=== PATIENT | female | born 1950 | race Caucasian/White ===

== ENCOUNTER 2019-11-05 16:45 | Emergency (ER) | payer MEDICARE, MEDICAID ==
--- NOTE | 2019-11-05 17:20 | EDM.PDOC ---
ED HPI GENERAL MEDICAL PROBLEM - General Chief Complaint: Lower Extremity Injury/Pain Stated Complaint: BACK OF LEFT KNEE Time Seen by Provider: 11/05/19 16:48 Source of Information: Reports: Patient, Old Records - History of Present Illness INITIAL COMMENTS - FREE TEXT/NARRATIVE: 68-year-old female with multiple medical problems most relevantly atrial fibrillation for which she takes Eliquis she also takes a baby aspirin. She is presenting with improving but persistent left knee pain and an abnormal ultrasound report. Patient had a telehealth appointment near her residence. She complained of knee pain and knee swelling and ultrasound was ordered there was some confusion about the interpretation as it said both no DVT as well as blood clot and the patient was referred to the ER. 2 to 3 weeks ago the patient developed a relatively rapid and acute left knee pain and swelling that was atraumatic. This pain was moderate to severe at that time but is gradually improved. She is been able to walk some independently. She has been elevating it as well. Patient had an ultrasound today that ultrasound showed no DVT in that extremity but a relatively large cyst in the popliteal fossa was complex architecture suggested blood clot. Patient was recommended to proceed to the ER for further evaluation. left knee Pain Score (Numeric/FACES): 8 - Related Data Allergies Allergy/AdvReac Type Severity Reaction Status Date / Time codeine Allergy Nausea and Verified 11/05/19 17:05 Vomiting Home Meds: Home Meds Apixaban [Eliquis] 5 mg PO BID 11/05/19 [History] Aspirin 81 mg PO DAILY 11/05/19 [History] DULoxetine [Cymbalta] 20 mg PO BID 11/05/19 [History] Metoprolol Tartrate 0.5 tab PO DAILY 11/05/19 [History] Pantoprazole [ProTONIX] 40 mg PO DAILY 11/05/19 [History] Pramipexole [Mirapex] 0.25 mg PO DAILY 11/05/19 [History] Roflumilast [Daliresp] 500 mcg PO DAILY 11/05/19 [History] Rosuvastatin Calcium [Ezallor Sprinkle] 40 mg PO BEDTIME 11/05/19 [History] Sulfamethoxazole/Trimethoprim [Bactrim Ds Tablet] 1 each PO DAILY 11/05/19 [ History] lisinopriL [Lisinopril] 40 mg PO DAILY 11/05/19 [History] traZODone HCl [Trazodone HCl] 50 mg PO Q8HR PRN 11/05/19 [History] Review of Systems - Review of Systems Review Of Systems: Comprehensive ROS is negative, except as noted in HPI. ED EXAM, GENERAL - Physical Exam Exam: See Below Free Text/Narrative:: General Appearance: No acute distress, appears comfortable Skin: No rash HEENT: Normocephalic/atraumatic, sclera anicteric, mucous membranes moist Neck: Normal range of motion Back: Normal Musculoskeletal: 2+ DP pulse in the left leg there is a moderate left knee effusion that knee effusion is without tenderness or warmth or erythema there is a nontender ecchymosis along the left medial thigh that is without palpable swelling there is a tender palpable cyst in the popliteal fossa consistent with Castrejon's cyst. There is no calf pain or tenderness there is no other lower extremity erythema there is no skin change that would suggest cellulitis ligaments intact x4 on exam passive range of motion is nearly full in extension flexion somewhat limited to 90 degrees due to discomfort behind the knee. Neurologic: Awake, alert, no obvious deficits, moving all extremities Psychiatric: Appropriate, cooperative Course - Vital Signs Last Recorded V/S: Last Vital Signs Temp 97.4 F 11/05/19 17:06 Pulse 88 11/05/19 17:06 Resp 18 11/05/19 17:06 BP 108/60 11/05/19 17:06 Pulse Ox 93 L 11/05/19 17:06 Departure - Departure Time of Disposition: 17:17 Disposition: Home, Self-Care 01 Condition: Good Clinical Impression: Knee effusion, left, Castrejon's cyst, unruptured, Ecchymosis - Discharge Information *PRESCRIPTION DRUG MONITORING PROGRAM REVIEWED*: Not Applicable *COPY OF PRESCRIPTION DRUG MONITORING REPORT IN PATIENT TONY: Not Applicable Instructions: Knee Effusion, [id number], Castrejon Cyst Referrals: PCP,None [Primary Care Provider] - Forms: ED Department Discharge Additional Instructions: We discussed that I think the swelling in your knee was due to bleeding in your knee that happened back when the pain started and was at its worst a few weeks ago. Over time your body is breaking down that blood some of it is going back into your bloodstream and being redistributed but some of it also arises to the surface which is why you can see the purpleish discoloration on your thigh. The painful swelling behind your knee is most consistent with a Castrejon's cyst. Because you had bleeding in your knee joint and a Castrejon's cyst is connected to your knee joint that Castrejon's cyst is now also full of blood. You do not have a DVT in that leg which is a blood clot in the deep veins of the leg. You do not have any signs of an infection in your knee. And this process should improve on its own over the next few weeks. I encourage you to use a cane or walker to help you get around so that you are not stuck in bed. And since things do seem to be improving I would not change your medications or stop your Eliquis at this time. I encourage you to follow-up with your primary care doctor you can also follow-up with the orthopedic surgeon to help ensure that this process resolves itself as we expect. The following information is given to patients seen in the emergency department who are being discharged to home. This information is to outline your options for follow-up care. We provide all patients seen in our emergency department with a follow-up referral. The need for follow-up, as well as the timing and circumstances, are variable depending upon the specifics of your emergency department visit. If you don't have a primary care physician on staff, we will provide you with a referral. We always advise you to contact your personal physician following an emergency department visit to inform them of the circumstance of the visit and for follow-up with them and/or the need for any referrals to a consulting specialist. The emergency department will also refer you to a specialist when appropriate. This referral assures that you have the opportunity for follow-up care with a specialist. All of these measure are taken in an effort to provide you with optimal care, which includes your follow-up. Under all circumstances we always encourage you to contact your private physician who remains a resource for coordinating your care. When calling for follow-up care, please make the office aware that this follow-up is from your recent emergency room visit. If for any reason you are refused follow-up, please contact the [facility] Emergency Department at and asked to speak to the emergency department charge nurse. Sepsis Event Note - Evaluation Sepsis Screening Result: No Definite Risk - Focused Exam Vital Signs: Vital Signs Temp Pulse Resp BP Pulse Ox 11/05/19 17:06 97.4 F 88 18 108/60 93 L Date Exam was Performed: 11/05/19 Time Exam was Performed: 17:22 - Assessment/Plan Assessment:: 68-year-old female presenting with improving atraumatic left knee pain and swelling with clinical findings most consistent with resolving hemarthrosis likely secondary to the Eliquis. This would explain the ecchymosis along the medial thigh would also explain the blood noted within what seems to be a Castrejon' s cyst behind the knee. No skin changes that would suggest cellulitis no concern for septic arthritis patient is able to tolerate range of motion and ambulation relatively well range of motion is relatively full there is no warmth or erythema associated with this. No concern for acute arterial compromise the limb feels warm and well perfused. No history of trauma no focal bony tenderness on exam. I think the atraumatic hemarthrosis related to the Eliquis led to the complex structure and blood clot within the Castrejon's cyst. I do not see any evidence of fracture I do not see any indication of DVT I do not see any indication of cellulitis or septic arthritis. Other etiologies considered as well. Patient recommended to procure cane to help with ambulation she was provided follow-up information for orthopedic surgery both locally and in [facility] where she lives. Given that the symptoms are improving I would not alter her medications at this time.
== END 2019-11-05 17:33 | disposition home or self-care (01) ==
LOC: MW.ED 16:45
DX: M71.22 Synovial cyst of popliteal space [Baker], left knee (principal); Z88.5 Allergy status to narcotic agent; Z79.82 Long term (current) use of aspirin; Z79.01 Long term (current) use of anticoagulants; Z79.899 Other long term (current) drug therapy
CPT/HCPCS: 99283

== ENCOUNTER 2019-11-09 16:01 | Emergency (ER) | payer MEDICARE, MEDICAID ==
--- NOTE | 2019-11-09 16:46 | EDM.PDOC ---
ED HPI GENERAL MEDICAL PROBLEM - General Chief Complaint: Skin Complaint Stated Complaint: SICK Time Seen by Provider: 11/09/19 16:21 - History of Present Illness INITIAL COMMENTS - FREE TEXT/NARRATIVE: History of present illness: [Presents with concerns about a painful spot on her neck that is been present for 2 days she states that it is tender to touch she cannot see what is there she denies any injuries there is been no fever or chills recently she had a Castrejon's cyst so she is worried this might be related to her Castrejon's cyst.] Review of systems: As per history of present illness and below otherwise all systems reviewed and negative. Past medical history: As per history of present illness and as reviewed below otherwise noncontributory. Surgical history: As per history of present illness and as reviewed below otherwise noncontributory. Social history: No reported history of drug or alcohol abuse. Family history: As per history of present illness and as reviewed below otherwise noncontributory. Physical exam: HEENT: Atraumatic, normocephalic, pupils reactive, negative for conjunctival pallor or scleral icterus, mucous membranes moist, throat clear, neck supple, nontender, trachea midline. Lungs: Clear to auscultation, breath sounds equal bilaterally, chest nontender. Heart: S1S2, regular, negative for clicks, rubs, or JVD. Abdomen: Soft, nondistended, nontender. Negative for masses or hepatosplenomegaly. Negative for costovertebral tenderness. Pelvis: Stable nontender. Genitourinary: Deferred. Rectal: Deferred. Extremities: Atraumatic, negative for cords or calf pain. Neurovascular unremarkable. Neuro: Awake, alert, oriented. Cranial nerves II through XII unremarkable. Cerebellum unremarkable. Motor and sensory unremarkable throughout. Exam nonfocal. neck: There is no lesion on the skin there is a palpable knot consistent with muscle spasm. No evidence of rash no evidence of subcutaneous structure or abscess. Diagnostics: [] Therapeutics: [] Impression: Cervical strain [] Plan: In the middle of the evaluation the patient stood up and left without any explanation [] Definitive disposition and diagnosis as appropriate pending reevaluation and review of above. back of neck Pain Score (Numeric/FACES): 6 - Related Data Allergies Allergy/AdvReac Type Severity Reaction Status Date / Time codeine Allergy Nausea and Verified 11/09/19 16:07 Vomiting Home Meds: Home Meds Apixaban [Eliquis] 5 mg PO BID 11/05/19 [History] Aspirin 81 mg PO DAILY 11/05/19 [History] DULoxetine [Cymbalta] 20 mg PO BID 11/05/19 [History] Metoprolol Tartrate 0.5 tab PO DAILY 11/05/19 [History] Pantoprazole [ProTONIX] 40 mg PO DAILY 11/05/19 [History] Pramipexole [Mirapex] 0.25 mg PO DAILY 11/05/19 [History] Roflumilast [Daliresp] 500 mcg PO DAILY 11/05/19 [History] Rosuvastatin Calcium [Ezallor Sprinkle] 40 mg PO BEDTIME 11/05/19 [History] Sulfamethoxazole/Trimethoprim [Bactrim Ds Tablet] 1 each PO DAILY 11/05/19 [ History] lisinopriL [Lisinopril] 40 mg PO DAILY 11/05/19 [History] traZODone HCl [Trazodone HCl] 50 mg PO Q8HR PRN 11/05/19 [History] Past Medical History HEENT History: Reports: None Cardiovascular History: Reports: Afib, Hypertension Respiratory History: Reports: COPD Gastrointestinal History: Reports: None Genitourinary History: Reports: None VARIETY SAW OPERATOR History: Reports: None Musculoskeletal History: Reports: None Other Neuro History: subderal hematoma with surgery Psychiatric History: Reports: Anxiety Endocrine/Metabolic History: Reports: None Insulin Pump Model and Diagnostic Sales Specialist: None Hematologic History: Reports: None Immunologic History: Reports: None Oncologic (Cancer) History: Reports: None Dermatologic History: Reports: None - Infectious Disease History Infectious Disease History: Reports: None - Past Surgical History Head Surgeries/Procedures: Reports: None Musculoskeletal Surgical History: Reports: Hip Replacement, Knee Replacement Social & Family History - Family History Family Medical History: Noncontributory - Tobacco Use Smoking Status *Q: Current Every Day Smoker Years of Tobacco use: 45 Packs/Tins Daily: 0.5 - Caffeine Use Caffeine Use: Reports: None - Recreational Drug Use Recreational Drug Use: No ED ROS GENERAL - Review of Systems Review Of Systems: See Below ED EXAM, SKIN/RASH Exam: See Below Course - Vital Signs Text/Narrative:: The patient for some reason became frustrated and left prior to completion of the physical exam. Last Recorded V/S: Last Vital Signs Temp 36.4 C 11/09/19 16:09 Pulse 79 11/09/19 16:09 Resp 18 11/09/19 16:09 BP 143/86 H 11/09/19 16:09 Pulse Ox 95 11/09/19 16:09 Departure - Departure Time of Disposition: 16:40 Disposition: Home, Self-Care 01 Condition: Good Clinical Impression: Neck pain - Discharge Information *PRESCRIPTION DRUG MONITORING PROGRAM REVIEWED*: Not Applicable *COPY OF PRESCRIPTION DRUG MONITORING REPORT IN PATIENT TONY: Not Applicable Referrals: PCP,Not In Area [Primary Care Provider] - Sepsis Event Note - Evaluation Sepsis Screening Result: No Definite Risk - Focused Exam Vital Signs: Vital Signs Temp Pulse Resp BP Pulse Ox 11/09/19 16:09 36.4 C 79 18 143/86 H 95 Date Exam was Performed: 11/09/19 Time Exam was Performed: 16:36
== END 2019-11-09 16:35 | disposition home or self-care (01) ==
LOC: MW.ED 16:01
DX: M54.2 Cervicalgia (principal); F17.210 Nicotine dependence, cigarettes, uncomplicated; I48.91 Unspecified atrial fibrillation; I10 Essential (primary) hypertension; J44.9 Chronic obstructive pulmonary disease, unspecified; F41.9 Anxiety disorder, unspecified; Z88.5 Allergy status to narcotic agent; Z79.82 Long term (current) use of aspirin; Z79.01 Long term (current) use of anticoagulants; Z79.899 Other long term (current) drug therapy
CPT/HCPCS: 99282; 99283

== ENCOUNTER 2020-03-15 11:53 | Emergency (ER) | payer MEDICARE, MEDICAID, OTHER ==
[2020-03-15] MEDS ORDERED: Sodium Chloride 0.9% 10 ML Syringe FLUSH PRN (11:54)
[2020-03-15] MEDS ORDERED: Sodium Chloride 0.9% 2.5 ML Syringe FLUSH PRN (11:54)
--- NOTE | 2020-03-15 12:34 | CR ---
Chest: Portable view of the chest was obtained. Comparison: No previous chest imaging is available. Heart size is felt to be slightly enlarged. Upper mediastinum is normal. Lungs show no definite acute parenchymal change. Questionable nodule is seen overlying the posterior eighth rib. Slight degenerative change within both acromioclavicular joints is noted. Impression: 1. Questionable small nodule within the right mid to lower lung. Consider noncontrast chest CT to hopefully exclude this possibility. 2. Heart size is felt to be slightly enlarged. 3. Nothing acute is otherwise seen. Diagnostic code #9 This report was dictated in MDT
[2020-03-15 12:51] LABS: CARBON DIOXIDE,CO2 24.5 mmol/L (21.0-32.0); POTASSIUM,K 4.1 mmol/L (3.5-5.1)
[2020-03-15] MEDS ORDERED: Sodium Chloride 0.9% 1,000 ML IV ONE (13:08)
[2020-03-15] MEDS ORDERED: Iopamidol 755 Mg/ML 100 ML Bottle IVPUSH STA (14:15)
--- NOTE | 2020-03-15 14:23 | CT ---
CT chest Technique: Multiple axial sections through the chest were obtained. Intravenous contrast was utilized. Study has been performed as a pulmonary angiogram protocol. Comparison: No prior chest CT is available, a chest x-ray performed earlier on the same day (12:17 PM). Findings: Pulmonary arteries are well opacified. No filling defects are seen to indicate pulmonary embolism. Heart is enlarged. No discrete abnormality seen within the visualized upper abdominal structures other than a small right renal cyst. Aorta shows no aneurysm. Small mediastinal lymph nodes are seen for are felt to be within normal limits. Diffuse emphysematous changes are seen. Increased density is noted within the left lung base either due to atelectasis or pneumonia. There is collapse of a portion of the right middle lobe along the major fissure. Uncertain if this is chronic or acute. Small lesion is noted within the upper right lung measuring 1.9 cm which has slightly spiculated margins. Lungs otherwise are clear. Bone window settings were reviewed. No acute osseous finding is seen. Mild scattered endplate spurring is noted within the spine. Impression: 1. No findings of pulmonary embolism. 2. Atelectasis involving a portion of the right middle lobe. Uncertain if this is chronic or acute. 3. Parenchymal density within left lung base either due to atelectasis or pneumonia. 4. Spiculated lesion within the upper right lung measuring 1.9 cm. Difficult at this time to exclude neoplasm. This is believed because the density on chest x-ray. 5. Diffuse emphysematous change. Diagnostic code #9 This report was dictated in MDT
--- NOTE | 2020-03-15 14:39 | EDM.PDOC ---
ED HPI GENERAL MEDICAL PROBLEM - General Chief Complaint: Respiratory Problem Stated Complaint: SOB Time Seen by Provider: 03/15/20 11:54 Source of Information: Reports: Patient History Limitations: Reports: No Limitations - History of Present Illness INITIAL COMMENTS - FREE TEXT/NARRATIVE: HISTORY AND PHYSICAL: History of present illness: Patient is a 69-year-old female who presents to the ED today with concern of worsening short of breath over the last 1 to 2 days. Patient states 1 month ago she was admitted at [facility] in [place] and was discharged 1 month ago due to pneum onia. Patient states at that time they had a hard time finding antibiotics that would take care of the pneumonia according to patient. Patient states since discharge from the hospital, she has been on 3 L nasal cannula at home to maintain her oxygen. Patient states that she came into the ED today because her home health was concerned because her oxygen was in the 80s on 3 L so they increased her to 4 L in order to get her up into the 90s. Patient states over the past several days she has felt more short of breath and coughing but this is also typical as she has COPD. Patient states that she has been on steroids until this weekend and was completely weaned off of them over the weekend. Patient states she has not been on any antibiotics for 1 month but does have symptoms as if she does have pneumonia like she did prior. Patient states she also has a history of CAD, subdural hematoma due to head injury. Denies any other symptoms or concerns. Patient denies fever, chills, chest pain. Denies headache, neck stiff ness, change in vision, syncope, or near syncope. Denies nausea, vomiting, abdominal pain, diarrhea, constipation, or dysuria. Has not noted any blood in urine or stool. Patient has been eating and drinking appropriately. Review of systems: As per history of present illness and below otherwise all systems reviewed and negative. Past medical history: As per history of present illness and as reviewed below otherwise noncontributory. Surgical history: As per history of present illness and as reviewed below otherwise noncontributory. Social history: See social history for further information Family history: As per history of present illness and as reviewed below otherwise noncontributory. Physical exam: General: Patient is alert, oriented, and in no acute distress. Patient laying comfortably on exam table. HEENT: Atraumatic, normocephalic, pupils equal and reactive bilaterally, negative for conjunctival pallor or scleral icterus, mucous membranes moist, TMs normal bilaterally, throat clear, neck supple, nontender, trachea midline. No drooling or trismus noted. No meningeal signs. No hot potato voice noted. Lungs: Patient speaking clearly without breathlessness, no wheezing or stridor, no accessory muscle use or respiratory distress. Auscultation deferred due to current COV-ID 19 outbreak. Heart: Auscultation deferred due to current COV-ID 19 outbreak. Abdomen: Soft, nondistended, nontender. Negative for masses or hepatosplenomegaly. Negative for costovertebral tenderness. Pelvis: Stable nontender. Genitourinary: Deferred. Rectal: Deferred. Skin: Intact, warm, dry. No lesions or rashes noted. Extremities: Atraumatic, negative for cords or calf pain. Neurovascular unremarkable. Neuro: Awake, alert, oriented. Cranial nerves II through XII unremarkable. Cerebellum unremarkable. Motor and sensory unremarkable throughout. Exam nonfocal. Notes: Dr. Quevedo verbally involved in patient care. Patient is 99% oxygen on 3L NC throughout entire stay here in the ED. Per patient, this is her baseline and not changed from home. All findings of Ang CT discussed with patient and need to have this followed up with her primary care provider. Questionable pneumonia vs atelectasis on CT, however, patient does have a UTI at this time so will give antibiotics for UTI and possible pneumonia. Admission was offered and encouraged but she declines requesting discharge from ED to home. All risks vs benefits discussed with patient. Will give initial IV dose of antibiotics in the ED today pending [facility] records to better guide antibiotic coverage from prior pneumonia as patient states they had difficulties finding an antibiotic due to resistance. While waiting for records from [facility], patient adamantly requesting leave from ED without having records for guidance of antibiotics or giving a sputum culture. Will give empiric antibiotics at this time as patient is not willing to wait for better guidance for coverage and send patient home with incentive spirometry. Discussed importance for reevaluation of symptoms tomorrow or Friday in the ER or by her primary care provider. She is willing to sign AMA form. Diagnostics: CBC, CMP, UA w culture, EKG, CXR, Trop, Ang CT, lactate, blood culture x 2, sputum culture Therapeutics: NS, Incentive Spirometer-sent home with Prescription: Augmentin, Azithromycin Impression: Dyspnea, r/o early pneumonia Urinary tract infection Left against medical advice Plan: 1. Take medication as prescribed. Use incentive spirometry as shown and as discussed. Follow up with your primary care provider as discussed. Return to the ED as needed and as discussed. Definitive disposition and diagnosis as appropriate pending reevaluation and review of above. - Related Data Allergies Allergy/AdvReac Type Severity Reaction Status Date / Time codeine Allergy Nausea and Verified 03/15/20 12:00 Vomiting Home Meds: Home Meds Apixaban [Eliquis] 5 mg PO BID 11/05/19 [History] Aspirin 81 mg PO DAILY 11/05/19 [History] DULoxetine [Cymbalta] 30 mg PO BID 11/05/19 [History] Pantoprazole [ProTONIX] 40 mg PO DAILY 11/05/19 [History] Pramipexole [Mirapex] 0.25 mg PO BEDTIME 11/05/19 [History] Roflumilast [Daliresp] 500 mcg PO DAILY 11/05/19 [History] Rosuvastatin Calcium [Ezallor Sprinkle] 40 mg PO BEDTIME 11/05/19 [History] lisinopriL [Lisinopril] 5 mg PO DAILY 11/05/19 [History] traZODone HCl [Trazodone HCl] 50 mg PO Q8HR PRN 11/05/19 [History] ALPRAZolam [Xanax] 0.5 mg PO TID PRN 03/15/20 [History] Albuterol Sulfate [Albuterol Sulfate Hfa] 1 puff INH Q6H PRN 03/15/20 [History] Albuterol/Ipratropium [DuoNeb 3.0-0.5 MG/3 ML] 3 ml INH Q6H PRN 03/15/20 [History] Amoxicillin/Clavulanate K [Augmentin 500-125 MG] 1 tab PO Q8H 7 Days #21 tab 03/15/20 [Rx] Docusate Sodium 100 mg PO DAILY PRN 03/15/20 [History] Fluticasone/Umeclidin/Vilanter [Trelegy Ellipta 100-62.5-25 MCG] 1 puff INH DAILY 03/15/20 [History] Hydrocodone/Acetaminophen [Hydrocodone-Acetamin 5-325 mg] 1 tab PO Q6H PRN 03/15/20 [History] Nitroglycerin 0.4 mg SL Q5M PRN 03/15/20 [History] Sucralfate 1 gm PO QID 03/15/20 [History] dilTIAZem HCL [Cardizem Cd] 360 mg PO DAILY 03/15/20 [History] Past Medical History HEENT History: Reports: None Cardiovascular History: Reports: Afib, Hypertension Respiratory History: Reports: COPD Gastrointestinal History: Reports: None Genitourinary History: Reports: None ACCOUNTS RECEIVABLE PROCESSOR History: Reports: None Musculoskeletal History: Reports: None Other Neuro History: subderal hematoma with surgery Psychiatric History: Reports: Anxiety Endocrine/Metabolic History: Reports: None Insulin Pump Model and Gizzard Skin Remover: None Hematologic History: Reports: None Immunologic History: Reports: None Oncologic (Cancer) History: Reports: None Dermatologic History: Reports: None - Infectious Disease History Infectious Disease History: Reports: None - Past Surgical History Head Surgeries/Procedures: Reports: None Musculoskeletal Surgical History: Reports: Hip Replacement, Knee Replacement Social & Family History - Family History Family Medical History: Noncontributory - Tobacco Use Smoking Status *Q: Unknown Ever Smoked - Caffeine Use Caffeine Use: Reports: None ED ROS GENERAL - Review of Systems Review Of Systems: Comprehensive ROS is negative, except as noted in HPI. ED EXAM, GENERAL - Physical Exam Exam: See Below (see dictation) Course - Vital Signs Last Recorded V/S: Last Vital Signs Temp 97.0 F 03/15/20 12:00 Pulse 80 03/15/20 15:40 Resp 20 03/15/20 15:40 BP 129/75 03/15/20 15:40 Pulse Ox 96 03/15/20 15:40 - Orders/Labs/Meds Orders: Active Orders 24 hr Category Date Time Status Cardiac Monitoring [RC] . DIRECTED Care 03/15/20 11:54 Active CULTURE BLOOD [BC] Stat Lab 03/15/20 14:04 Received CULTURE BLOOD [BC] Stat Lab 03/15/20 14:17 Received CULTURE SPUTUM + SMEAR [RM] Stat Lab 03/15/20 14:40 Ordered CULTURE URINE [RM] Stat Lab 03/15/20 14:00 Received Sodium Chloride 0.9% [Saline Flush] Med 03/15/20 11:54 Active 10 ml FLUSH ASDIRECTED PRN Sodium Chloride 0.9% [Saline Flush] Med 03/15/20 11:54 Active 2.5 ml FLUSH ASDIRECTED PRN Blood Culture x2 Reflex Set [OM.PC] Stat Ot 03/15/20 13:32 Ordered DME for Discharge [COMM] Stat Ot 03/15/20 15:01 Ordered Saline Lock Insert [OM.PC] Stat Ot 03/15/20 11:54 Ordered Medication Orders Sodium Chloride (Saline Flush) 10 ml FLUSH ASDIRECTED PRN PRN Reason: Keep Vein Open Last Admin: 03/15/20 13:16 Dose: 10 ml Documented by: [id number] Sodium Chloride (Saline Flush) 2.5 ml FLUSH ASDIRECTED PRN PRN Reason: Keep Vein Open Last Admin: 03/15/20 13:15 Dose: 2.5 ml Documented by: [id number] Labs: Laboratory Tests 03/15/20 03/15/20 03/15/20 Range/Units 12:15 12:15 12:15 WBC 12.06 H (4.0-11.0) K/uL RBC 3.86 L (4.30-5.90) M/uL Hgb 11.1 L (12.0-16.0) g/dL Hct 34.5 L (36.0-46.0) % MCV 89.4 (80.0-98.0) fL MCH 28.8 (27.0-32.0) pg MCHC 32.2 (31.0-37.0) g/dL RDW Std Deviation 49.8 (28.0-62.0) fl RDW Coeff of Trisha 15 (11.0-15.0) % Plt Count 160 (150-400) K/uL MPV 9.50 (7.40-12.00) fL Add Manual Diff YES Neutrophils % (Manual) 81 H (48.0-80.0) % Band Neutrophils % 3 % Lymphocytes % (Manual) 12 L (16.0-40.0) % Monocytes % (Manual) 3 (0.0-15.0) % Metamyelocytes % 1 % Nucleated RBC % 0.3 /100WBC Absolute Seg Neuts 9.8 H (1.4-5.7) Band Neutrophils # 0.4 Lymphocytes # (Manual) 1.4 (0.6-2.4) Monocytes # (Manual) 0.4 (0.0-0.8) Absolute Metamyelocyte 0.1 Nucleated RBCs # 0 K/uL Lactate 1.2 (0.20-2.00) mmol/L Sodium 131 L (136-145) mmol/L Potassium 4.1 (3.5-5.1) mmol/L Chloride 97 L (98-107) mmol/L Carbon Dioxide 24.5 (21.0-32.0) mmol/L BUN 15 (7.0-18.0) mg/dL Creatinine 1.1 H (0.6-1.0) mg/dL Est Cr Clr Drug Dosing 42.27 mL/min Estimated GFR (MDRD) 49.4 ml/min Glucose 103 (74-106) mg/dL Calcium 8.4 L (8.5-10.1) mg/dL Total Bilirubin 0.2 (0.2-1.0) mg/dL AST 35 (15-37) IU/L ALT 74 H (14-63) IU/L Alkaline Phosphatase 63 (46-116) U/L Troponin I 0.050 (0.000-0.056) ng/mL Total Protein 5.8 L (6.4-8.2) g/dL Albumin 2.5 L (3.4-5.0) g/dL Globulin 3.3 (2.6-4.0) g/dL Albumin/Globulin Ratio 0.8 L (0.9-1.6) Urine Color Urine Appearance Urine pH (5.0-8.0) Ur Specific [place] (1.001-1.035) Urine Protein (NEGATIVE) mg/dL Urine Glucose (UA) (NEGATIVE) mg/dL Urine Ketones (NEGATIVE) mg/dL Urine Occult Blood (NEGATIVE) Urine Nitrite (NEGATIVE) Urine Bilirubin (NEGATIVE) Urine Urobilinogen (<2.0) EU/dL Ur Leukocyte Esterase (NEGATIVE) Urine RBC (0-2/HPF) Urine WBC (0-5/HPF) Ur Epithelial Cells (NONE-FEW) Urine Bacteria (NEGATIVE) COVID-19 (RAYSHAWN) (NEGATIVE) 03/15/20 03/15/20 Range/Units 12:30 14:00 WBC (4.0-11.0) K/uL RBC (4.30-5.90) M/uL Hgb (12.0-16.0) g/dL Hct (36.0-46.0) % MCV (80.0-98.0) fL MCH (27.0-32.0) pg MCHC (31.0-37.0) g/dL RDW Std Deviation (28.0-62.0) fl RDW Coeff of Trisha (11.0-15.0) % Plt Count (150-400) K/uL MPV (7.40-12.00) fL Add Manual Diff Neutrophils % (Manual) (48.0-80.0) % Band Neutrophils % % Lymphocytes % (Manual) (16.0-40.0) % Monocytes % (Manual) (0.0-15.0) % Metamyelocytes % % Nucleated RBC % /100WBC Absolute Seg Neuts (1.4-5.7) Band Neutrophils # Lymphocytes # (Manual) (0.6-2.4) Monocytes # (Manual) (0.0-0.8) Absolute Metamyelocyte Nucleated RBCs # K/uL Lactate (0.20-2.00) mmol/L Sodium (136-145) mmol/L Potassium (3.5-5.1) mmol/L Chloride (98-107) mmol/L Carbon Dioxide (21.0-32.0) mmol/L BUN (7.0-18.0) mg/dL Creatinine (0.6-1.0) mg/dL Est Cr Clr Drug Dosing mL/min Estimated GFR (MDRD) ml/min Glucose (74-106) mg/dL Calcium (8.5-10.1) mg/dL Total Bilirubin (0.2-1.0) mg/dL AST (15-37) IU/L ALT (14-63) IU/L Alkaline Phosphatase (46-116) U/L Troponin I (0.000-0.056) ng/mL Total Protein (6.4-8.2) g/dL Albumin (3.4-5.0) g/dL Globulin (2.6-4.0) g/dL Albumin/Globulin Ratio (0.9-1.6) Urine Color YELLOW Urine Appearance HAZY Urine pH 7.5 (5.0-8.0) Ur Specific [place] 1.010 (1.001-1.035) Urine Protein NEGATIVE (NEGATIVE) mg/dL Urine Glucose (UA) NEGATIVE (NEGATIVE) mg/dL Urine Ketones NEGATIVE (NEGATIVE) mg/dL Urine Occult Blood MODERATE H (NEGATIVE) Urine Nitrite NEGATIVE (NEGATIVE) Urine Bilirubin NEGATIVE (NEGATIVE) Urine Urobilinogen 0.2 (<2.0) EU/dL Ur Leukocyte Esterase SMALL H (NEGATIVE) Urine RBC 10-15 (0-2/HPF) Urine WBC 5-10 (0-5/HPF) Ur Epithelial Cells RARE (NONE-FEW) Urine Bacteria 2+ H (NEGATIVE) COVID-19 (RAYSHAWN) NEGATIVE (NEGATIVE) Meds: Medications Generic Name Dose Route Start Last Admin Trade Name Freq PRN Reason Stop Dose Admin Sodium Chloride 10 ml 03/15/20 11:54 03/15/20 13:16 Saline Flush FLUSH 10 ml ASDIRECTED PRN Administration Keep Vein Open Sodium Chloride 2.5 ml 03/15/20 11:54 03/15/20 13:15 Saline Flush FLUSH 2.5 ml ASDIRECTED PRN Administration Keep Vein Open Discontinued Medications Generic Name Dose Route Start Last Admin Trade Name Freq PRN Reason Stop Dose Admin Sodium Chloride 1,000 mls @ 999 mls/hr 03/15/20 13:08 03/15/20 13:15 Normal Saline IV 03/15/20 14:08 999 mls/hr STAT ONE Administration Iopamidol 50 ml 03/15/20 14:15 03/15/20 14:16 [id number] (76%) IVPUSH 03/15/20 14:16 50 ml ONETIME STA Administration Departure - Departure Time of Disposition: 15:26 Disposition: Against Medical Advice 07 Clinical Impression: Left against medical advice Urinary tract infection Qualifiers: Urinary tract infection type: acute cystitis Hematuria presence: with hematuria Qualified Code(s): N30.01 - Acute cystitis with hematuria Dyspnea Qualifiers: Dyspnea type: unspecified Qualified Code(s): R06.00 - Dyspnea, unspecified - Discharge Information Prescriptions: Amoxicillin/Clavulanate K [Augmentin 500-125 MG] 1 tab PO Q8H 7 Days #21 tab Instructions: Urinary Tract Infection, Adult Referrals: PCP,None [Primary Care Provider] - Forms: ED Department Discharge Additional Instructions: The following information is given to patients seen in the emergency department who are being discharged to home. This information is to outline your options for follow-up care. We provide all patients seen in our emergency department with a follow-up referral. The need for follow-up, as well as the timing and circumstances, are variable depending upon the specifics of your emergency department visit. If you don't have a primary care physician on staff, we will provide you with a referral. We always advise you to contact your personal physician following an emergency department visit to inform them of the circumstance of the visit and for follow-up with them and/or the need for any referrals to a consulting specialist. The emergency department will also refer you to a specialist when appropriate. This referral assures that you have the opportunity for follow-up care with a specialist. All of these measure are taken in an effort to provide you with opti mal care, which includes your follow-up. Under all circumstances we always encourage you to contact your private physician who remains a resource for coordinating your care. When calling for follow-up care, please make the office aware that this follow-up is from your recent emergency room visit. If for any reason you are refused follow-up, please contact the [facility] Emergency Department at and asked to speak to the emergency department charge nurse. [facility] [address] [place] [id number] [place] [address] 1. Take medication as prescribed. Use incentive spirometry as shown and as discussed. Follow up with your primary care provider as discussed. Return to the ED as needed and as discussed. Sepsis Event Note (ED) - Evaluation Sepsis Screening Result: No Definite Risk - Focused Exam Vital Signs: Vital Signs Temp Pulse Resp BP Pulse Ox 03/15/20 15:40 80 20 129/75 96 03/15/20 14:40 84 20 145/82 H 96 03/15/20 13:22 76 20 96 03/15/20 12:31 76 18 118/63 96 03/15/20 12:00 97.0 F 77 20 134/77 98 - My Orders Last 24 Hours: My Active Orders 03/15/20 11:54 Cardiac Monitoring [RC] . DIRECTED Sodium Chloride 0.9% [Saline Flush] 10 ml FLUSH ASDIRECTED PRN Sodium Chloride 0.9% [Saline Flush] 2.5 ml FLUSH ASDIRECTED PRN Saline Lock Insert [OM.PC] Stat 03/15/20 13:32 Blood Culture x2 Reflex Set [OM.PC] Stat 03/15/20 14:00 CULTURE URINE [RM] Stat 03/15/20 14:04 CULTURE BLOOD [BC] Stat 03/15/20 14:17 CULTURE BLOOD [BC] Stat 03/15/20 14:40 CULTURE SPUTUM + SMEAR [RM] Stat 03/15/20 15:01 DME for Discharge [COMM] Stat - Assessment/Plan Last 24 Hours: My Active Orders 03/15/20 11:54 Cardiac Monitoring [RC] . DIRECTED Sodium Chloride 0.9% [Saline Flush] 10 ml FLUSH ASDIRECTED PRN Sodium Chloride 0.9% [Saline Flush] 2.5 ml FLUSH ASDIRECTED PRN Saline Lock Insert [OM.PC] Stat 03/15/20 13:32 Blood Culture x2 Reflex Set [OM.PC] Stat 03/15/20 14:00 CULTURE URINE [RM] Stat 03/15/20 14:04 CULTURE BLOOD [BC] Stat 03/15/20 14:17 CULTURE BLOOD [BC] Stat 03/15/20 14:40 CULTURE SPUTUM + SMEAR [RM] Stat 03/15/20 15:01 DME for Discharge [COMM] Stat
== END 2020-03-15 15:40 | disposition left against medical advice (07) ==
LOC: MW.ED 11:53
DX: R06.02 Shortness of breath (principal); N30.01 Acute cystitis with hematuria; I10 Essential (primary) hypertension; I48.91 Unspecified atrial fibrillation; J44.9 Chronic obstructive pulmonary disease, unspecified; F41.9 Anxiety disorder, unspecified; Z88.5 Allergy status to narcotic agent; Z79.01 Long term (current) use of anticoagulants; Z79.82 Long term (current) use of aspirin; Z79.899 Other long term (current) drug therapy; Z20.828 Contact with and (suspected) exposure to other viral communicable diseases
CPT/HCPCS: 36415; 71045; 71275; 80053; 81001; 83605; 84484; 85025; 87040; 87086; 96360; 96361; 99285; J7030; Q9967; U0002; 99283

== ENCOUNTER 2020-04-01 12:34 | Emergency (ER) | payer MEDICARE, MEDICAID, OTHER ==
[2020-04-01] MEDS ORDERED: Sodium Chloride 0.9% 10 ML Syringe FLUSH PRN (12:35)
[2020-04-01] MEDS ORDERED: Sodium Chloride 0.9% 2.5 ML Syringe FLUSH PRN (12:35)
--- NOTE | 2020-04-01 12:39 | EDM.PDOC ---
ED HPI GENERAL MEDICAL PROBLEM - General Chief Complaint: Chest Pain Stated Complaint: CHEST PAIN Time Seen by Provider: 04/01/20 12:35 Source of Information: Reports: Patient History Limitations: Reports: No Limitations - History of Present Illness INITIAL COMMENTS - FREE TEXT/NARRATIVE: 69-year-old female with history of Afib on Eliquis, SC x3 with 2 stents, HTN, COPD, asthma, CKD stage III presents for chest pain and palpitation. Symptoms started last night around 10 PM, her chest pain is diffuse, sharp pressure sensation rated at 9/10, she took 1 nitroglycerin with relief, however her palpitations persist. Her chest pain is associated with palpitations, shortness of breath, dry cough, nausea, sweats. She denies fever, chills, abdominal pain. Today she still had persistent chest pain rated at 7/10, EMS administered 2 sublingual nitroglycerin and it improved to 5/10. ROS: A 10-point review of systems, other than pertinent positives and negatives as stated per HPI, is otherwise negative Past medical history: No additional pertinent history Past Surgical history: No additional pertinent history Social history: No additional pertinent history Family history: No additional pertinent history PHYSICAL EXAM General: AOx4, GCS = 15, No distress HEENT: dry mucous membrane Neck: supple, no meningismus, no Kernig or Brudzinski Cardiac: S1S2 tachycardia, irregular rhythm HR = 130s Respiratory: CTAB, no crackles or rales, no wheezing Abdomen: Soft, nontender, no rebound or guarding, nondistended, no pulsatile mass. Back: nontender Musculoskeletal: NVI distally, no deformity Neuro: No focal deficits - Related Data Allergies Allergy/AdvReac Type Severity Reaction Status Date / Time codeine Allergy Nausea and Verified 04/01/20 13:39 Vomiting Home Meds: Home Meds Apixaban [Eliquis] 5 mg PO BID 11/05/19 [History] Aspirin 81 mg PO DAILY 11/05/19 [History] DULoxetine [Cymbalta] 30 mg PO BID 11/05/19 [History] Pantoprazole [ProTONIX] 40 mg PO DAILY 11/05/19 [History] Pramipexole [Mirapex] 0.25 mg PO BEDTIME 11/05/19 [History] Roflumilast [Daliresp] 500 mcg PO DAILY 11/05/19 [History] Rosuvastatin Calcium [Ezallor Sprinkle] 40 mg PO BEDTIME 11/05/19 [History] lisinopriL [Lisinopril] 5 mg PO DAILY 11/05/19 [History] traZODone HCl [Trazodone HCl] 50 mg PO Q8HR PRN 11/05/19 [History] ALPRAZolam [Xanax] 0.5 mg PO TID PRN 03/15/20 [History] Albuterol Sulfate [Albuterol Sulfate Hfa] 1 puff INH Q6H PRN 03/15/20 [History] Albuterol/Ipratropium [DuoNeb 3.0-0.5 MG/3 ML] 3 ml INH Q6H PRN 03/15/20 [History] Amoxicillin/Clavulanate K [Augmentin 500-125 MG] 1 tab PO Q8H 7 Days #21 tab 03/15/20 [Rx] Docusate Sodium 100 mg PO DAILY PRN 03/15/20 [History] Fluticasone/Umeclidin/Vilanter [Trelegy Ellipta 100-62.5-25 MCG] 1 puff INH DAILY 03/15/20 [History] Hydrocodone/Acetaminophen [Hydrocodone-Acetamin 5-325 mg] 1 tab PO Q6H PRN 03/15/20 [History] Nitroglycerin 0.4 mg SL Q5M PRN 03/15/20 [History] Sucralfate 1 gm PO QID 03/15/20 [History] dilTIAZem HCL [Cardizem Cd] 360 mg PO DAILY 03/15/20 [History] Past Medical History HEENT History: Reports: None Cardiovascular History: Reports: Afib, Hypertension Respiratory History: Reports: COPD Gastrointestinal History: Reports: None Genitourinary History: Reports: None [employer] MEMBER History: Reports: None Musculoskeletal History: Reports: None Other Neuro History: subderal hematoma with surgery Psychiatric History: Reports: Anxiety Endocrine/Metabolic History: Reports: None 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 Hematologic History: Reports: None Immunologic History: Reports: None Oncologic (Cancer) History: Reports: None Dermatologic History: Reports: None - Infectious Disease History Infectious Disease History: Reports: None - Past Surgical History Head Surgeries/Procedures: Reports: None Musculoskeletal Surgical History: Reports: Hip Replacement, Knee Replacement Social & Family History - Family History Family Medical History: Noncontributory - Caffeine Use Caffeine Use: Reports: None ED ROS GENERAL - Review of Systems Review Of Systems: See Below (see dictation) ED EXAM, GENERAL - Physical Exam Exam: See Below (see dictation) EKG INTERPRETATION EKG Interpretation Comments: 118 bpm, A. fib with rapid ventricular rate normal QRS interval, no STEMI. EKG and rhythm strip interpreted by me at 1236 73 bpm, NSR, normal QRS interval, no STEMI. EKG and rhythm strip interpreted by me at 1500 Course - Vital Signs Last Recorded V/S: Last Vital Signs Temp 97.8 F 04/01/20 13:40 Pulse 78 04/01/20 14:47 Resp 17 04/01/20 14:47 BP 111/74 04/01/20 14:47 Pulse Ox 98 04/01/20 14:47 - Orders/Labs/Meds Orders: Active Orders 24 hr Category Date Time Status Cardiac Monitoring [RC] . DIRECTED Care 04/01/20 12:35 Active EKG Documentation Completion [RC] STAT Care 04/01/20 12:36 Active Pulse Oximetry [RC] ASDIRECTED Care 04/01/20 12:35 Active CORONAVIRUS COVID-19 PCR PHL Stat Lab 04/01/20 12:35 Ordered PROCALCITONIN [REF] Stat Lab 04/01/20 12:36 Received Nitroglycerin/D5W [Nitroglycerin 25 MG/D5W 250 ML] Med 04/01/20 15:15 Ordered 25 mg in 250 ml IV TITRATE Sodium Chloride 0.9% [Saline Flush] Med 04/01/20 12:35 Active 10 ml FLUSH ASDIRECTED PRN Sodium Chloride 0.9% [Saline Flush] Med 04/01/20 12:35 Active 2.5 ml FLUSH ASDIRECTED PRN Saline Lock Insert [OM.PC] Stat Oth 04/01/20 12:35 Ordered Medication Orders Nitroglycerin/Dextrose (Nitroglycerin 25 Mg/D5w 250 Ml) 25 mg in 250 mls @ 6 mls/hr IV TITRATE ZURDO; Protocol Sodium Chloride (Saline Flush) 10 ml FLUSH ASDIRECTED PRN PRN Reason: Keep Vein Open Last Admin: 04/01/20 13:32 Dose: 10 ml Documented by: Sodium Chloride (Saline Flush) 2.5 ml FLUSH ASDIRECTED PRN PRN Reason: Keep Vein Open Last Admin: 04/01/20 13:32 Dose: 2.5 ml Documented by: Labs: Laboratory Tests 04/01/20 04/01/20 04/01/20 Range/Units 12:36 12:36 12:36 WBC 10.08 (4.0-11.0) K/uL RBC 3.81 L (4.30-5.90) M/uL Hgb 10.9 L (12.0-16.0) g/dL Hct 34.4 L (36.0-46.0) % MCV 90.3 (80.0-98.0) fL MCH 28.6 (27.0-32.0) pg MCHC 31.7 (31.0-37.0) g/dL RDW Std Deviation 52.6 (28.0-62.0) fl RDW Coeff of Trisha 16 H (11.0-15.0) % Plt Count 219 (150-400) K/uL MPV 9.30 (7.40-12.00) fL Neut % (Auto) 51.7 (48.0-80.0) % Lymph % (Auto) 38.9 (16.0-40.0) % Gentry % (Auto) 7.3 (0.0-15.0) % Eos % (Auto) 1.6 (0.0-7.0) % Baso % (Auto) 0.5 (0.0-1.5) % Neut # (Auto) 5.2 (1.4-5.7) K/uL Lymph # (Auto) 3.9 H (0.6-2.4) K/uL Gentry # (Auto) 0.7 (0.0-0.8) K/uL Eos # (Auto) 0.2 (0.0-0.7) K/uL Baso # (Auto) 0.1 (0.0-0.1) K/uL Nucleated RBC % 0.0 /100WBC Nucleated RBCs # 0 K/uL INR 1.03 APTT 24.8 (18.6-31.3) SEC Sodium 133 L (136-145) mmol/L Potassium 4.9 (3.5-5.1) mmol/L Chloride 98 (98-107) mmol/L Carbon Dioxide 29.0 (21.0-32.0) mmol/L BUN 22 H (7.0-18.0) mg/dL Creatinine 1.4 H (0.6-1.0) mg/dL Est Cr Clr Drug Dosing TNP Estimated GFR (MDRD) 37.4 ml/min Glucose 99 (74-106) mg/dL Calcium 9.1 (8.5-10.1) mg/dL Magnesium 2.0 (1.8-2.4) mg/dL Total Bilirubin 0.2 (0.2-1.0) mg/dL AST 19 (15-37) IU/L ALT 33 (14-63) IU/L Alkaline Phosphatase 67 (46-116) U/L Troponin I 0.071 H* (0.000-0.056) ng/mL Total Protein 6.4 (6.4-8.2) g/dL Albumin 3.0 L (3.4-5.0) g/dL Globulin 3.4 (2.6-4.0) g/dL Albumin/Globulin Ratio 0.9 (0.9-1.6) Meds: Medications Generic Name Dose Route Start Last Admin Trade Name Freq PRN Reason Stop Dose Admin Nitroglycerin/Dextrose 25 mg in 250 mls @ 6 mls/hr 04/01/20 15:15 Nitroglycerin 25 Mg/D5w 250 Ml IV TITRATE ZURDO Protocol 10 MCG/MIN Sodium Chloride 10 ml 04/01/20 12:35 04/01/20 13:32 Saline Flush FLUSH 10 ml ASDIRECTED PRN Administration Keep Vein Open Sodium Chloride 2.5 ml 04/01/20 12:35 04/01/20 13:32 Saline Flush FLUSH 2.5 ml ASDIRECTED PRN Administration Keep Vein Open Discontinued Medications Generic Name Dose Route Start Last Admin Trade Name Freq PRN Reason Stop Dose Admin Diltiazem HCl 20 mg 04/01/20 12:52 04/01/20 15:18 Diltiazem IVPUSH 04/01/20 12:53 Not Given ONETIME ONE Lactated Ringer's 500 mls @ 999 mls/hr 04/01/20 13:06 04/01/20 13:30 Ringers, Lactated IV 04/01/20 13:36 999 mls/hr .BOLUS ONE Administration Nitroglycerin/Dextrose Confirm 04/01/20 15:12 Nitroglycerin 25 Mg/D5w 250 Ml Administered 04/01/20 15:13 Dose 25 mg in 250 mls @ as directed .ROUTE .STK-MED ONE Morphine Sulfate 4 mg 04/01/20 14:04 04/01/20 14:08 Morphine IVPUSH 04/01/20 14:05 4 mg ONETIME ONE Administration Morphine Sulfate 4 mg 04/01/20 15:18 04/01/20 15:22 Morphine IVPUSH 04/01/20 15:19 4 mg ONETIME ONE Administration Nitroglycerin 0.4 mg 04/01/20 13:06 04/01/20 13:32 Nitrostat SL 04/01/20 13:07 0.4 mg ONETIME ONE Administration - Re-Assessments/Exams Free Text/Narrative Re-Assessment/Exam: 04/01/20 1245 Ordered 20 mg IV Cardizem for A. fib with RVR. 04/01/20 13:05 Heart rate normalized to the 80s without Cardizem. Will give additional nitroglycerin for chest pain rated 5/10. 04/01/20 13:23 I discussed with the hospitalist regarding possible admission, Dr. Joiner recommends transferring patient to outside facility for the need of higher level of care not available at this facility, and the need for wedding consultant services unavailable at this facility. Any emergency conditions have been stabilized to the ability of the ED prior to the transfer. Case was discussed and accepted by Dr. Rodriguez at [facility] 04/01/20 15:06 Chest pain is now coming back, repeat EKG performed. Pain rated 8/10, will start NTG drip. Still waiting for transport crew to arrive. Will also give additioanl 4mg Morphine. 04/01/20 15:23 EMS crew here to take patient. Departure - Departure Time of Disposition: 13:26 Disposition: DC/Tfer to Other 70 Condition: Fair Clinical Impression: NSTEMI (non-ST elevated myocardial infarction), Atrial fibrillation with RVR - Discharge Information *PRESCRIPTION DRUG MONITORING PROGRAM REVIEWED*: Not Applicable *COPY OF PRESCRIPTION DRUG MONITORING REPORT IN PATIENT TONY: Not Applicable Referrals: PCP,Unobtain [Primary Care Provider] - Forms: ED Department Discharge Critical Care Note - Critical Care Note Total Time (mins): 128 Comments: CRITCAL CARE: The high probability of sudden, clinically significant deterioration in the patient's condition required the highest level of my preparedness to intervene urgently. The services I provided to this patient were to treat and/or prevent clinically significant deterioration. Services included the following: chart data review, reviewing nursing notes and/or old charts, documentation time, client experience consultant collaboration regarding findings and treatment options, medication orders and management, direct patient care, vital sign assessments and ordering, interpreting and reviewing diagnostic studies/lab tests. Aggregate critical care time includes only time during which I was engaged in work directly related to the patient's care, as described above, whether at the bedside or elsewhere in the Emergency Department. It did not include time spent performing other reported procedures or the services of residents, students, nurses or physician assistants. Frequent interventions and/or frequent repeat evaluations were required as well as counseling and coordination of care regarding prognosis, treatments, and discussions with patient, staff and consultants. Critical Care (excluding other procedures): 128 minutes Sepsis Event Note (ED) - Focused Exam Vital Signs: Vital Signs Temp Pulse Resp BP BP Pulse Ox 04/01/20 14:47 78 17 111/74 98 04/01/20 13:51 78 113/73 99 04/01/20 13:40 97.8 F 04/01/20 13:39 77 108/75 97 04/01/20 13:38 80 18 108/75 98 04/01/20 13:33 77 123/77 97 04/01/20 13:32 123/77 04/01/20 13:17 78 108/75 97 04/01/20 13:02 78 107/73 96 04/01/20 12:48 118 H 112/70 97 04/01/20 12:34 106 H 117/74 92 L - My Orders Last 24 Hours: My Active Orders 04/01/20 12:35 Cardiac Monitoring [RC] . DIRECTED Pulse Oximetry [RC] ASDIRECTED CORONAVIRUS COVID-19 PCR PHL Stat Sodium Chloride 0.9% [Saline Flush] 10 ml FLUSH ASDIRECTED PRN Sodium Chloride 0.9% [Saline Flush] 2.5 ml FLUSH ASDIRECTED PRN Saline Lock Insert [OM.PC] Stat 04/01/20 12:36 EKG Documentation Completion [RC] STAT PROCALCITONIN [REF] Stat 04/01/20 15:15 Nitroglycerin/D5W [Nitroglycerin 25 MG/D5W 250 ML] 25 mg in 250 ml IV TITRATE - Assessment/Plan Last 24 Hours: My Active Orders 04/01/20 12:35 Cardiac Monitoring [RC] . DIRECTED Pulse Oximetry [RC] ASDIRECTED CORONAVIRUS COVID-19 PCR PHL Stat Sodium Chloride 0.9% [Saline Flush] 10 ml FLUSH ASDIRECTED PRN Sodium Chloride 0.9% [Saline Flush] 2.5 ml FLUSH ASDIRECTED PRN Saline Lock Insert [OM.PC] Stat 04/01/20 12:36 EKG Documentation Completion [RC] STAT PROCALCITONIN [REF] Stat 04/01/20 15:15 Nitroglycerin/D5W [Nitroglycerin 25 MG/D5W 250 ML] 25 mg in 250 ml IV TITRATE
[2020-04-01] MEDS ORDERED: Diltiazem 25 MG/5 ML SDV IVPUSH ONE (12:52)
[2020-04-01] MEDS ORDERED: Lactated Ringers 500 ML IV ONE (13:06)
[2020-04-01] MEDS ORDERED: Nitroglycerin 0.4 MG Tab.SL SL ONE (13:06)
[2020-04-01 13:16] LABS: BLOOD UREA NITROGEN,BUN 22 mg/dL (7.0-18.0); CHLORIDE,CL 98 mmol/L (98-107); GLUCOSE RANDOM 99 mg/dL (74-106); POTASSIUM,K 4.9 mmol/L (3.5-5.1); SODIUM,NA 133 mmol/L (136-145)
--- NOTE | 2020-04-01 13:40 | CR ---
Chest: Portable view of the chest was obtained. Comparison: Prior chest CT of 03/15/20 and chest x-ray also of 03/15/20. Pulmonary vessels are slightly increased which appeared to be fairly stable. Heart is enlarged. Upper mediastinum is normal. Bony structures are grossly intact. Impression: 1. Findings as noted above. 2. Nothing acute is appreciated. Diagnostic code #2 This report was dictated in MDT
[2020-04-01] MEDS ORDERED: Morphine 4 MG/ML Syringe IVPUSH ONE ×2 (14:04→15:18)
[2020-04-01] MEDS ORDERED: Nitroglycerin/D5W 25 MG/250 ML BOTTLE ONE (15:12)
[2020-04-01] MEDS ORDERED: Nitroglycerin/D5W 25 MG/250 ML BOTTLE IV SCH (15:15)
== END 2020-04-01 15:35 | disposition other institution (70) ==
LOC: MW.ED 12:34
DX: I21.4 Non-ST elevation (NSTEMI) myocardial infarction (principal); I48.91 Unspecified atrial fibrillation; I12.9 Hypertensive chronic kidney disease with stage 1 through stage 4 chronic kidney disease, or unspecified chronic kidney disease; N18.3 Chronic kidney disease, stage 3 (moderate); J44.9 Chronic obstructive pulmonary disease, unspecified; F41.9 Anxiety disorder, unspecified; I25.2 Old myocardial infarction; Z88.5 Allergy status to narcotic agent; Z79.82 Long term (current) use of aspirin; Z79.01 Long term (current) use of anticoagulants; Z79.899 Other long term (current) drug therapy; Z95.5 Presence of coronary angioplasty implant and graft
CPT/HCPCS: 71045; 80053; 83735; 84145; 84484; 85025; 85610; 85730; 93005; 96374; 96375; 96376; 99291; 99292; J2270; J3490; J7120; 36415; A9270-GY

== ENCOUNTER 2020-04-25 18:05 | Observation (INO) | payer MEDICARE, MEDICAID, OTHER ==
[2020-04-25] MEDS ORDERED: Sodium Chloride 0.9% 1,000 ML IV ONE (18:49)
--- NOTE | 2020-04-25 19:01 | EDM.PDOC ---
ED HPI GENERAL MEDICAL PROBLEM - General Chief Complaint: Respiratory Problem Stated Complaint: COVID POSITIVE Time Seen by Provider: 04/25/20 18:06 Source of Information: Reports: Patient History Limitations: Reports: No Limitations - History of Present Illness INITIAL COMMENTS - FREE TEXT/NARRATIVE: HISTORY AND PHYSICAL: History of present illness: Patient is a 69-year-old female who presents to the ED today with concern of COVID-19 infection that she was diagnosed with earlier this morning in [place]. Patient states that she saw a oracle engineer yesterday at [facility] in [place] and received a CT scan yesterday and states that her oracle engineer was concerned for pneumonia so put her on antibiotics yesterday. Patient states that she has been taking these antibiotics as prescribed but noticed today that she was feeling more tired and rundown so saw her primary care provider in [place] who did a Covid test this morning which was positive. Patient states that her primary care provider was concerned so told her to the emergency room to come and be evaluated as patient is a high risk patient to have an infection with Covid. Patient states that she has felt more tired and rundown today. Patient states she is in the process of receiving a bronchoscopy with the oracle engineer at [place]. Patient states that this was plan to be scheduled in the upcoming weeks. Patient states she is on 3 L nasal cannula at home and has not had to increase this but has had an increase in cough. Patient has a history of A. fib on [place] x3 with 2 stents, hypertension, COPD on chronic oxygen, chronic kidney disease stage III. Patient denies fever, chills, chest pain. Denies headache, neck stiff ness, change in vision, syncope, or near syncope. Denies nausea, vomiting, abdominal pain, diarrhea, constipation, or dysuria. Has not noted any blood in urine or stool. Patient has been eating and drinking appropriately. Review of systems: As per history of present illness and below otherwise all systems reviewed and negative. Past medical history: As per history of present illness and as reviewed below otherwise noncontributory. Surgical history: As per history of present illness and as reviewed below otherwise noncontributory. Social history: See social history for further information Family history: As per history of present illness and as reviewed below otherwise noncontributory. Physical exam: General: Patient is alert, oriented, and in no acute distress. Patient laying comfortably on exam table. HEENT: Atraumatic, normocephalic, pupils equal and reactive bilaterally, negative for conjunctival pallor or scleral icterus, mucous membranes moist, TMs normal bilaterally, throat clear, neck supple, nontender, trachea midline. No drooling or trismus noted. No meningeal signs. No hot potato voice noted. Lungs: Patient speaking clearly without breathlessness, no wheezing or stridor, no accessory muscle use or respiratory distress. Auscultation deferred due to current COV-ID 19 outbreak. Heart: Auscultation deferred due to current COV-ID 19 outbreak. Abdomen: Nondistended Pelvis: Stable nontender. Genitourinary: Deferred. Rectal: Deferred. Skin: Intact, warm, dry. No lesions or rashes noted. Extremities: Atraumatic, negative for cords or calf pain. Neurovascular unremarkable. Neuro: Awake, alert, oriented. Cranial nerves II through XII unremarkable. Cerebellum unremarkable. Motor and sensory unremarkable throughout. Exam nonfocal. Notes: Initial blood pressure was softer but did improve to 100s/60s with NS. Dr. Joiner consulted on patient and will admit to observation telemetry. Voices understanding and is agreeable to plan of care. Denies any further questions or concerns at this time. Diagnostics: EKG, CBC, CMP, UA, CXR, Trop, Azithromycin, Remdesmivir, Rocephin, Decadron [employer]: NS, Rocephin Impression: Pneumonia COVID-19 infection Plan: Admit to observation to Dr. Joiner Definitive disposition and diagnosis as appropriate pending reevaluation and review of above. generalized Pain Score (Numeric/FACES): 8 - Related Data Allergies Allergy/AdvReac Type Severity Reaction Status Date / Time codeine Allergy Nausea and Verified 04/26/20 06:21 Vomiting Home Meds: Home Meds Aspirin 81 mg PO DAILY 11/05/19 [History] Pantoprazole [ProTONIX] 40 mg PO DAILY 11/05/19 [History] Pramipexole [Mirapex] 0.25 mg PO BEDTIME 11/05/19 [History] Roflumilast [Daliresp] 500 mcg PO DAILY 11/05/19 [History] Rosuvastatin Calcium [Ezallor Sprinkle] 40 mg PO BEDTIME 11/05/19 [History] lisinopriL [Lisinopril] 5 mg PO DAILY 11/05/19 [History] traZODone HCl [Trazodone HCl] 25 mg PO BEDTIME PRN 11/05/19 [History] Albuterol Sulfate [Albuterol Sulfate Hfa] 1 puff INH Q6H PRN 03/15/20 [History] Albuterol/Ipratropium [DuoNeb 3.0-0.5 MG/3 ML] 3 ml INH Q6H PRN 03/15/20 [History] Docusate Sodium 100 mg PO DAILY PRN 03/15/20 [History] Fluticasone/Umeclidin/Vilanter [Trelegy Ellipta 100-62.5-25 MCG] 1 puff INH DAILY 03/15/20 [History] Hydrocodone/Acetaminophen [Hydrocodone-Acetamin 5-325 mg] 1 tab PO Q6H PRN 03/15/20 [History] Nitroglycerin 0.4 mg SL Q5M PRN 03/15/20 [History] Sucralfate 1 gm PO QIDACANDBED 03/15/20 [History] dilTIAZem HCL [Cardizem Cd] 360 mg PO DAILY 03/15/20 [History] ALPRAZolam [Alprazolam] 0.5 mg PO TID PRN 04/26/20 [History] DULoxetine [Cymbalta] 30 mg PO BID 04/26/20 [History] Fluticasone/Umeclidin/Vilanter [Trelegy Ellipta 100-62.5-25 MCG] 1 inh IH DAILY 04/26/20 [History] Pantoprazole [ProTONIX] 40 mg PO DAILY 04/26/20 [History] Pramipexole [Mirapex] 0.25 mg PO BEDTIME 04/26/20 [History] dilTIAZem HCL [Diltiazem 24Hr ER (LA)] 360 mg PO DAILY 04/26/20 [History] dexAMETHasone [Dexamethasone] 6 mg PO DAILY 9 Days #27 tab 04/27/20 [Rx] Past Medical History HEENT History: Reports: None Cardiovascular History: Reports: Afib, Hypertension Respiratory History: Reports: COPD Gastrointestinal History: Reports: None Genitourinary History: Reports: None PROFESSIONAL DEVELOPMENT DIRECTOR History: Reports: None Musculoskeletal History: Reports: None Other Neuro History: subderal hematoma with surgery Psychiatric History: Reports: Anxiety Endocrine/Metabolic History: Reports: None Insulin Pump Model and Jockey Valet: None Hematologic History: Reports: None Immunologic History: Reports: None Oncologic (Cancer) History: Reports: None Dermatologic History: Reports: None - Infectious Disease History Infectious Disease History: Reports: None - Past Surgical History Head Surgeries/Procedures: Reports: None Musculoskeletal Surgical History: Reports: Hip Replacement, Knee Replacement Social & Family History - Family History Family Medical History: Noncontributory - Caffeine Use Caffeine Use: Reports: None ED ROS GENERAL - Review of Systems Review Of Systems: Comprehensive ROS is negative, except as noted in HPI. ED EXAM, GENERAL - Physical Exam Exam: See Below (see dictation) Course - Vital Signs Last Recorded V/S: Last Vital Signs Temp 95.9 F L 04/27/20 12:00 Pulse 53 L 04/27/20 12:00 Resp 16 04/27/20 12:00 BP 150/64 H 04/27/20 12:00 Pulse Ox 98 04/27/20 12:00 - Orders/Labs/Meds Labs: Laboratory Tests 04/25/20 04/25/20 04/25/20 Range/Units 19:13 19:13 19:50 WBC 8.16 (4.0-11.0) K/uL RBC 3.45 L (4.30-5.90) M/uL Hgb 10.0 L (12.0-16.0) g/dL Hct 31.3 L (36.0-46.0) % MCV 90.7 (80.0-98.0) fL MCH 29.0 (27.0-32.0) pg MCHC 31.9 (31.0-37.0) g/dL RDW Std Deviation 50.8 (28.0-62.0) fl RDW Coeff of Trisha 15 (11.0-15.0) % Plt Count 197 (150-400) K/uL MPV 9.50 (7.40-12.00) fL Neut % (Auto) 56.2 (48.0-80.0) % Lymph % (Auto) 30.0 (16.0-40.0) % [place] % (Auto) 12.4 (0.0-15.0) % Eos % (Auto) 0.7 (0.0-7.0) % Baso % (Auto) 0.7 (0.0-1.5) % Neut # (Auto) 4.6 (1.4-5.7) K/uL Lymph # (Auto) 2.5 H (0.6-2.4) K/uL [place] # (Auto) 1.0 H (0.0-0.8) K/uL Eos # (Auto) 0.1 (0.0-0.7) K/uL Baso # (Auto) 0.1 (0.0-0.1) K/uL Nucleated RBC % 0.0 /100WBC Nucleated RBCs # 0 K/uL Sodium 134 L (136-145) mmol/L Potassium 4.3 (3.5-5.1) mmol/L Chloride 100 (98-107) mmol/L Carbon Dioxide 27.1 (21.0-32.0) mmol/L BUN 13 (7.0-18.0) mg/dL Creatinine 1.5 H (0.6-1.0) mg/dL Est Cr Clr Drug Dosing 31.00 mL/min Estimated GFR (MDRD) 34.5 ml/min Glucose 86 (74-106) mg/dL Calcium 8.8 (8.5-10.1) mg/dL Total Bilirubin 0.3 (0.2-1.0) mg/dL AST 24 (15-37) IU/L ALT 23 (14-63) IU/L Alkaline Phosphatase 57 (46-116) U/L Troponin I < 0.050 (0.000-0.056) ng/mL Total Protein 6.7 (6.4-8.2) g/dL Albumin 3.3 L (3.4-5.0) g/dL Globulin 3.4 (2.6-4.0) g/dL Albumin/Globulin Ratio 1.0 (0.9-1.6) Lipase 156 (73-393) U/L Urine Color YELLOW Urine Appearance CLEAR Urine pH 6.0 (5.0-8.0) Ur Specific [place] >= 1.030 (1.001-1.035) Urine Protein NEGATIVE (NEGATIVE) mg/dL Urine Glucose (UA) NEGATIVE (NEGATIVE) mg/dL Urine Ketones NEGATIVE (NEGATIVE) mg/dL Urine Occult Blood NEGATIVE (NEGATIVE) Urine Nitrite NEGATIVE (NEGATIVE) Urine Bilirubin NEGATIVE (NEGATIVE) Urine Urobilinogen 0.2 (<2.0) EU/dL Ur Leukocyte Esterase NEGATIVE (NEGATIVE) Meds: Medications Discontinued Medications Generic Name Dose Route Start Last Admin Trade Name Freq PRN Reason Stop Dose Admin Hydrocodone Bitart/Acetaminophen 1 tab 04/25/20 23:11 [place] 325-5 Mg PO Q6H PRN Pain Albuterol 0 gm 04/25/20 23:11 Proventil Hfa INH Q6H PRN Shortness of Breath Alprazolam 0.5 mg 04/25/20 23:11 04/26/20 20:16 Xanax PO 0.5 mg TID PRN Administration Anxiety Aspirin 81 mg 04/26/20 09:00 04/27/20 09:16 Aspirin PO 81 mg DAILY ZURDO Administration Azithromycin 500 mg 04/26/20 23:15 04/26/20 23:03 Zithromax PO 500 mg Q24H ZURDO Administration Dexamethasone 6 mg 04/25/20 20:29 04/25/20 20:40 Dexamethasone PO 04/25/20 20:30 Not Given NOW STA Dexamethasone 6 mg 04/25/20 20:38 04/25/20 20:40 Dexamethasone IVPUSH 04/25/20 20:39 6 mg ONETIME ONE Administration Dexamethasone 6 mg 04/26/20 23:15 04/26/20 23:03 Dexamethasone PO 6 mg Q24H ZURDO Administration Dextrose/Water 50 ml 04/26/20 06:24 Dextrose 50% In Water IVPUSH ASDIRECTED PRN Hypoglycemia Diltiazem HCl 360 mg 04/26/20 09:00 04/27/20 09:17 Cardizem Cd PO 360 mg DAILY ZURDO Administration Docusate Sodium 100 mg 04/25/20 23:11 Colace PO DAILY PRN Constipation Enoxaparin Sodium 40 mg 04/25/20 23:15 04/26/20 23:04 Lovenox SUBCUT 40 mg Q24H ZURDO Administration Glucagon 1 mg 04/26/20 06:24 Glucagen IM ASDIRECTED PRN Hypoglycemia Sodium Chloride 1,000 mls @ 999 mls/hr 04/25/20 18:49 04/25/20 19:10 Normal Saline IV 04/25/20 19:49 999 mls/hr BOLUS ONE Administration Ceftriaxone Sodium/Dextrose 1 50 mls @ 100 mls/hr 04/25/20 20:16 04/25/20 20:40 gm/ Premix IV 04/25/20 20:45 100 mls/hr ONETIME ONE Administration Azithromycin 500 mg/ Sodium 250 mls @ 250 mls/hr 04/25/20 20:30 Chloride IV ONETIME ZURDO Remdesivir 200 mg/ Sodium 250 mls @ 250 mls/hr 04/25/20 20:30 04/26/20 00:25 Chloride IV 04/25/20 20:31 250 mls/hr ONETIME ONE Administration Azithromycin 500 mg/ Sodium 250 mls @ 250 mls/hr 04/25/20 23:15 04/25/20 23:36 Chloride IV 04/26/20 00:14 250 mls/hr NOW ONE Administration Remdesivir 100 mg/ Sodium 100 mls @ 100 mls/hr 04/26/20 23:15 04/26/20 23:06 Chloride IV 04/30/20 00:14 100 mls/hr Q24H ZURDO Administration Ceftriaxone Sodium/Dextrose Confirm 04/26/20 23:48 04/27/20 00:01 Rocephin In Dextrose,Iso-Osm 1 Gm/50 Ml Administered 04/26/20 23:49 Not Given Dose 50 mls @ as directed .ROUTE .STK-MED ONE Ceftriaxone Sodium/Dextrose 1 50 mls @ 100 mls/hr 04/26/20 23:00 04/27/20 00:21 gm/ Premix IV 100 mls/hr Q24H ZURDO Administration Insulin Aspart 0 unit 04/26/20 07:30 04/27/20 13:24 Novolog SUBCUT Not Given [facility] Protocol Pantoprazole Sodium 40 mg 04/26/20 09:00 04/27/20 09:16 Protonix PO 40 mg DAILY ZURDO Administration Roflumilast 500 Mcg 1 each 04/26/20 09:00 04/27/20 09:17 PO Not Given DAILY ZURDO Pramipexole Dihydrochloride 0.25 mg 04/26/20 21:00 04/26/20 20:02 Mirapex PO 0.25 mg BEDTIME ZURDO Administration Rosuvastatin Calcium 40 mg 04/26/20 21:00 04/26/20 20:01 Crestor PO 40 mg BEDTIME ZURDO Administration Trazodone HCl 50 mg 04/25/20 23:11 04/26/20 20:03 Trazodone PO 50 mg BEDTIME PRN Administration Pain Departure - Departure Time of Disposition: 20:39 Disposition: Refer to Observation Clinical Impression: COVID-19 Pneumonia Qualifiers: Pneumonia type: due to unspecified organism Laterality: left Lung location: upper lobe of lung Qualified Code(s): J18.9 - Pneumonia, unspecified organism - Discharge Information
--- NOTE | 2020-04-25 19:20 | PCM.SN.2 ---
- Free Text/Narrative Note: Heart rate = 67 bpm, normal sinus rhythm, normal QRS interval, no STEMI. EKG and rhythm strip interpreted by me at 1913
[2020-04-25 19:45] LABS: BLOOD UREA NITROGEN,BUN 13 mg/dL (7.0-18.0); CARBON DIOXIDE,CO2 27.1 mmol/L (21.0-32.0); CHLORIDE,CL 100 mmol/L (98-107); GLUCOSE RANDOM 86 mg/dL (74-106); LIPASE 156 U/L (73-393); POTASSIUM,K 4.3 mmol/L (3.5-5.1); SODIUM,NA 134 mmol/L (136-145)
--- NOTE | 2020-04-25 20:04 | CR ---
INDICATION: Cough TECHNIQUE: Chest radiograph 1 view COMPARISON: 04/01/2020 FINDINGS: Mediastinum: The mediastinum is normal in appearance. The heart silhouette is normal in size and morphology. Lung: Volume loss in the left hemithorax is present with new masslike consolidation in the left hilar region measuring 4.3 cm since the prior exam 1 month ago. No sign of pleural effusion seen. No pneumothorax is identified. Bone and Soft tissue: Unremarkable for age. IMPRESSION: 1. Volume loss in the left hemithorax is present with masslike consolidation in the left hilar region measuring 4.3 cm. Given the rapid development since prior examination, this may be due to pneumonia with atelectasis. Follow-up radiographs are recommended to document complete resolution. Dictated by Max Huggins MD @ 04/25/2020 8:02:27 PM Dictated by: Max Huggins MD @ 04/25/2020 20:02:35 (Electronically Signed)
[2020-04-25] MEDS ORDERED: cefTRIAXone 1 GM in Premix Bag 1 BAG IV ONE (20:16)
[2020-04-25] MEDS ORDERED: Dexamethasone 10 MG/ML SDV PO STA (20:29)
[2020-04-25] MEDS ORDERED: Azithromycin 500 MG in Sodium Chloride 0.9% 250 ML IV SCH (20:30)
[2020-04-25] MEDS ORDERED: Dexamethasone 10 MG/ML SDV IVPUSH ONE (20:38)
[2020-04-25] MEDS ORDERED: Albuterol 6.7 GM Inhaler INH PRN (23:11)
[2020-04-25] MEDS ORDERED: Docusate Sodium 100 MG Cap PO PRN (23:11)
[2020-04-25] MEDS ORDERED: Acetaminophen/HYDROcodone 325-5 MG Tab PO PRN (23:11)
[2020-04-25] MEDS ORDERED: ALPRAZolam 0.5 MG Tab PO PRN (23:11)
[2020-04-25] MEDS ORDERED: Azithromycin 500 MG in Sodium Chloride 0.9% 250 ML IV ONE (23:15)
[2020-04-25] MEDS: traZODone 50 MG Tab PO PRN (23:41)
[2020-04-25] MEDS: Enoxaparin 40 MG/0.4 ML Syringe SUBCUT SCH (23:43)
--- NOTE | 2020-04-25 23:43 | PCM.HP.2 ---
H&P History of Present Illness - General Date of Service: 04/25/20 Admit Problem/Dx: Admission Diagnosis/Problem Admission Diagnosis/Problem Pneumonia - History of Present Illness Initial Comments - Free Text/Narative: 69 yo female with pmh of CAD, [place], oxygen dependent COPD, and a.fib who presents with a week history of fevers, chills, productive cough, diarrhea and headache. 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 She reported to the ED today due to worsening malaise. She was positive for Covid. Chest x-ray reported left hilar consolidation. generalized Pain Score (Numeric/FACES): 8 - Related Data Allergies/Adverse Reactions: Allergies Allergy/AdvReac Type Severity Reaction Status Date / Time codeine Allergy Nausea and Verified 04/26/20 06:21 Vomiting Home Medications: Home Meds Apixaban [Eliquis] 5 mg PO BID 11/05/19 [History] Aspirin 81 mg PO DAILY 11/05/19 [History] Pantoprazole [ProTONIX] 40 mg PO DAILY 11/05/19 [History] Pramipexole [Mirapex] 0.25 mg PO BEDTIME 11/05/19 [History] Roflumilast [Daliresp] 500 mcg PO DAILY 11/05/19 [History] Rosuvastatin Calcium [Ezallor Sprinkle] 40 mg PO BEDTIME 11/05/19 [History] lisinopriL [Lisinopril] 5 mg PO DAILY 11/05/19 [History] traZODone HCl [Trazodone HCl] 25 mg PO BEDTIME PRN 11/05/19 [History] Albuterol Sulfate [Albuterol Sulfate Hfa] 1 puff INH Q6H PRN 03/15/20 [History] Albuterol/Ipratropium [DuoNeb 3.0-0.5 MG/3 ML] 3 ml INH Q6H PRN 03/15/20 [History] Docusate Sodium 100 mg PO DAILY PRN 03/15/20 [History] Fluticasone/Umeclidin/Vilanter [Trelegy Ellipta 100-62.5-25 MCG] 1 puff INH DAILY 03/15/20 [History] Hydrocodone/Acetaminophen [Hydrocodone-Acetamin 5-325 mg] 1 tab PO Q6H PRN 03/15/20 [History] Nitroglycerin 0.4 mg SL Q5M PRN 03/15/20 [History] Sucralfate 1 gm PO QIDACANDBED 03/15/20 [History] dilTIAZem HCL [Cardizem Cd] 360 mg PO DAILY 03/15/20 [History] ALPRAZolam [Alprazolam] 0.5 mg PO TID PRN 04/26/20 [History] DULoxetine [Cymbalta] 30 mg PO BID 04/26/20 [History] Fluticasone/Umeclidin/Vilanter [Trelegy Ellipta 100-62.5-25 MCG] 1 inh IH DAILY 04/26/20 [History] Pantoprazole [ProTONIX] 40 mg PO DAILY 04/26/20 [History] Pramipexole [Mirapex] 0.25 mg PO BEDTIME 04/26/20 [History] dilTIAZem HCL [Diltiazem 24Hr ER ([place])] 360 mg PO DAILY 04/26/20 [History] Past Medical History HEENT History: Reports: None Cardiovascular History: Reports: Afib, Hypertension Respiratory History: Reports: COPD Gastrointestinal History: Reports: None Genitourinary History: Reports: None HIDE WORKER History: Reports: None Musculoskeletal History: Reports: None Other Neuro History: subderal hematoma with surgery Psychiatric History: Reports: Anxiety Endocrine/Metabolic History: Reports: None Insulin Pump Model and Cnc Operator Programmer: None Hematologic History: Reports: None Immunologic History: Reports: None Oncologic (Cancer) History: Reports: None Dermatologic History: Reports: None - Infectious Disease History Infectious Disease History: Reports: None - Past Surgical History Head Surgeries/Procedures: Reports: None Musculoskeletal Surgical History: Reports: Hip Replacement, Knee Replacement Social & Family History - Family History Family Medical History: Noncontributory - Tobacco Use Tobacco Use Status *Q: Former Tobacco User Used Tobacco, but Quit: No - Caffeine Use Caffeine Use: Reports: None - Recreational Drug Use Recreational Drug Use: No H&P Review of Systems - Review of Systems: Review Of Systems: Comprehensive ROS is negative, except as noted in HPI. Exam - Exam Exam: See Below - Vital Signs Vital Signs: Last Vital Signs Temp 36.0 C L 04/25/20 22:07 Pulse 71 04/25/20 22:07 Resp 19 04/25/20 22:07 BP 142/71 H 04/25/20 22:07 Pulse Ox 90 L 04/25/20 22:07 Weight: 72.575 kg - Exam General: Alert, Oriented HEENT: Mucosa Moist & [place] Lungs: Normal Respiratory Effort, Decreased Breath Sounds Cardiovascular: Regular Rate, Regular Rhythm GI/Abdominal Exam: Normal Bowel Sounds, Soft, Non-Tender Extremities: Non-Tender, No Pedal Edema Skin: Warm, Dry, Intact Neurological: Normal Gait - Patient Data Lab Results Last 24 hrs: Laboratory Results - last 24 hr 04/25/20 04/25/20 04/25/20 Range/Units 19:13 19:13 19:50 WBC 8.16 (4.0-11.0) K/uL RBC 3.45 L (4.30-5.90) M/uL Hgb 10.0 L (12.0-16.0) g/dL Hct 31.3 L (36.0-46.0) % MCV 90.7 (80.0-98.0) fL MCH 29.0 (27.0-32.0) pg MCHC 31.9 (31.0-37.0) g/dL RDW Std Deviation 50.8 (28.0-62.0) fl RDW Coeff of Trisha 15 (11.0-15.0) % Plt Count 197 (150-400) K/uL MPV 9.50 (7.40-12.00) fL Neut % (Auto) 56.2 (48.0-80.0) % Lymph % (Auto) 30.0 (16.0-40.0) % [place] % (Auto) 12.4 (0.0-15.0) % Eos % (Auto) 0.7 (0.0-7.0) % Baso % (Auto) 0.7 (0.0-1.5) % Neut # (Auto) 4.6 (1.4-5.7) K/uL Lymph # (Auto) 2.5 H (0.6-2.4) K/uL [place] # (Auto) 1.0 H (0.0-0.8) K/uL Eos # (Auto) 0.1 (0.0-0.7) K/uL Baso # (Auto) 0.1 (0.0-0.1) K/uL Nucleated RBC % 0.0 /100WBC Nucleated RBCs # 0 K/uL Sodium 134 L (136-145) mmol/L Potassium 4.3 (3.5-5.1) mmol/L Chloride 100 (98-107) mmol/L Carbon Dioxide 27.1 (21.0-32.0) mmol/L BUN 13 (7.0-18.0) mg/dL Creatinine 1.5 H (0.6-1.0) mg/dL Est Cr Clr Drug Dosing 31.00 mL/min Estimated GFR (MDRD) 34.5 ml/min Glucose 86 (74-106) mg/dL Calcium 8.8 (8.5-10.1) mg/dL Total Bilirubin 0.3 (0.2-1.0) mg/dL AST 24 (15-37) IU/L ALT 23 (14-63) IU/L Alkaline Phosphatase 57 (46-116) U/L Troponin I < 0.050 (0.000-0.056) ng/mL Total Protein 6.7 (6.4-8.2) g/dL Albumin 3.3 L (3.4-5.0) g/dL Globulin 3.4 (2.6-4.0) g/dL Albumin/Globulin Ratio 1.0 (0.9-1.6) Lipase 156 (73-393) U/L Urine Color YELLOW Urine Appearance CLEAR Urine pH 6.0 (5.0-8.0) Ur Specific [place] >= 1.030 (1.001-1.035) Urine Protein NEGATIVE (NEGATIVE) mg/dL Urine Glucose (UA) NEGATIVE (NEGATIVE) mg/dL Urine Ketones NEGATIVE (NEGATIVE) mg/dL Urine Occult Blood NEGATIVE (NEGATIVE) Urine Nitrite NEGATIVE (NEGATIVE) Urine Bilirubin NEGATIVE (NEGATIVE) Urine Urobilinogen 0.2 (<2.0) EU/dL Ur Leukocyte Esterase NEGATIVE (NEGATIVE) Result Diagrams: 04/26/20 06:15 04/26/20 06:15 Sepsis Event Note - Evaluation Sepsis Screening Result: No Definite Risk - Focused Exam Vital Signs: Vital Signs Temp Pulse Resp BP Pulse Ox 04/25/20 22:07 36.0 C L 71 19 142/71 H 90 L 04/25/20 20:39 36.6 C 60 20 123/63 98 04/25/20 19:00 36.0 C L 78 20 89/40 L 99 - Problem List (1) A-fib SNOMED Code(s): 19149709 ICD Code: I48.91 - UNSPECIFIED ATRIAL FIBRILLATION Status: Chronic Current Visit: Yes (2) COPD (chronic obstructive pulmonary disease) SNOMED Code(s): 84324469 ICD Code: J44.9 - CHRONIC OBSTRUCTIVE PULMONARY DISEASE, UNSPECIFIED Status: Chronic Current Visit: Yes (3) CAD (coronary artery disease) SNOMED Code(s): 18743013 ICD Code: I25.10 - ATHSCL HEART DISEASE OF [place] CORONARY ARTERY W/O ANG PCTRS Status: Chronic Current Visit: Yes (4) COVID-19 SNOMED Code(s): 739505064 ICD Code: U07.1 - COVID-19 Status: Acute Current Visit: Yes (5) Pneumonia SNOMED Code(s): 808730212 ICD Code: J18.9 - PNEUMONIA, UNSPECIFIED ORGANISM Status: Acute Current Visit: Yes Qualifiers: Pneumonia type: due to unspecified organism Laterality: left Lung location: upper lobe of lung Qualified Code(s): J18.9 - Pneumonia, unspecified organism Problem List Initiated/Reviewed/Updated: Yes Orders Last 24hrs: Active Orders 24 hr Category Date Time Status Admission Status [Patient Status] [ADT] Stat ADT 04/25/20 20:32 Active Antiembolic Devices [RC] PER UNIT ROUTINE Care 04/25/20 23:19 Ordered EKG Documentation Completion [RC] STAT Care 04/25/20 18:49 Active Oxygen Therapy [RC] PRN Care 04/25/20 23:18 Ordered RT Post Treatment Assessment [RC] Click to Edit Care 04/25/20 23:13 Ordered RT Pre-Treatment Assessment [RC] Click to Edit Care 04/25/20 23:13 Ordered Up ad Liza [RC] ASDIRECTED Care 04/25/20 23:18 Ordered VTE/DVT Education [RC] PER UNIT ROUTINE Care 04/25/20 23:18 Ordered Vital Signs [RC] Q4H Care 04/25/20 23:18 Ordered Regular Diet [DIET] Diet 04/25/20 Breakfast Ordered CBC WITH AUTO DIFF [HEME] AM Lab 04/26/20 05:11 Ordered CBC WITH AUTO DIFF [HEME] AM Lab 04/27/20 05:11 Ordered CBC WITH AUTO DIFF [HEME] AM Lab 04/28/20 05:11 Ordered CBC WITH AUTO DIFF [HEME] AM Lab 04/29/20 05:11 Ordered COMPREHENSIVE METABOLIC PN,CMP [CHEM] AM Lab 04/26/20 05:11 Ordered COMPREHENSIVE METABOLIC PN,CMP [CHEM] AM Lab 04/27/20 05:11 Ordered COMPREHENSIVE METABOLIC PN,CMP [CHEM] AM Lab 04/28/20 05:11 Ordered COMPREHENSIVE METABOLIC PN,CMP [CHEM] AM Lab 04/29/20 05:11 Ordered ALPRAZolam [Xanax] Med 04/25/20 23:11 Ordered 0.5 mg PO TID PRN Albuterol [Proventil HFA] Med 04/25/20 23:11 Ordered 1 puff INH Q6H PRN Aspirin Med 04/26/20 09:00 Ordered 81 mg PO DAILY Azithromycin [Zithromax] Med 04/26/20 23:15 Ordered 500 mg PO Q24H Azithromycin [Zithromax] 500 mg Med 04/25/20 23:15 Active Sodium Chloride 0.9% [Normal Saline (AdvBag)] 250 ml IV NOW Docusate Sodium [Colace] Med 04/25/20 23:11 Ordered 100 mg PO DAILY PRN Enoxaparin [Lovenox] Med 04/25/20 23:15 Ordered 40 mg SUBCUT Q24H Hydrocodone/Acetaminophen Med 04/25/20 23:11 Ordered 1 tab PO Q6H PRN Pantoprazole [ProTONIX] Med 04/26/20 09:00 Ordered 40 mg PO DAILY Pramipexole [Mirapex] Med 04/26/20 21:00 Ordered 0.25 mg PO BEDTIME Remdesivir (Eua) [Remdesivir (EUA)] 100 mg Med 04/26/20 23:15 Ordered Sodium Chloride 0.9% [Normal Saline] 100 ml IV Q24H Roflumilast Med 04/26/20 09:00 Ordered 500 mcg PO DAILY Rosuvastatin Calcium [Ezallor Sprinkle] Med 04/26/20 21:00 Ordered 40 mg PO BEDTIME cefTRIAXone [Rocephin] 1 gm Med 04/26/20 23:15 Ordered Sodium Chloride 0.9% [Normal Saline] 50 ml IV Q24H dexAMETHasone Med 04/26/20 23:15 Ordered 6 mg PO Q24H dilTIAZem HCL [Cardizem Cd] Med 04/26/20 09:00 Ordered 360 mg PO DAILY traZODone Med 04/25/20 23:11 Ordered 50 mg PO BEDTIME PRN Sequential Compression Device [OM.PC] Per Unit Routine Oth 04/25/20 23:18 Ordered Resuscitation Status Routine Resus Stat 04/25/20 23:18 Ordered Medication Orders Hydrocodone Bitart/Acetaminophen ([place] 325-5 Mg) 1 tab PO Q6H PRN PRN Reason: Pain Albuterol (Proventil Hfa) 0 gm INH Q6H PRN PRN Reason: Shortness of Breath Alprazolam (Xanax) 0.5 mg PO TID PRN PRN Reason: Anxiety Aspirin (Aspirin) 81 mg PO DAILY [facility] Azithromycin (Zithromax) 500 mg PO Q24H [facility] Dexamethasone (Dexamethasone) 6 mg PO Q24H [facility] Diltiazem HCl (Cardizem Cd) 360 mg PO DAILY [facility] Docusate Sodium (Colace) 100 mg PO DAILY PRN PRN Reason: Constipation Enoxaparin Sodium (Lovenox) 40 mg SUBCUT Q24H [facility] Azithromycin 500 mg/ Sodium (Chloride) 250 mls @ 250 mls/hr IV NOW ONE Stop: 04/26/20 00:14 Last Admin: 04/25/20 23:36 Dose: 250 mls/hr Documented by: NICOLE Remdesivir 100 mg/ Sodium (Chloride) 100 mls @ 100 mls/hr IV Q24H [facility] Stop: 04/30/20 00:14 Ceftriaxone Sodium 1 gm/ (Sodium Chloride) 50 mls @ 100 mls/hr IV Q24H [facility] Non-Formulary Medication (Roflumilast) 500 mcg PO DAILY [facility] Pantoprazole Sodium (Protonix) 40 mg PO DAILY [facility] Pramipexole Dihydrochloride (Mirapex) 0.25 mg PO BEDTIME [facility] Rosuvastatin Calcium (Crestor) 40 mg PO BEDTIME [facility] Trazodone HCl (Trazodone) 50 mg PO BEDTIME PRN PRN Reason: Pain Assessment/Plan Comment:: 69 yo female admitted for COVID pneumonia COVID: treating with dexamethasone, remdesivir, and lovenox Patient give fact sheet on remdesivir and explained about its FDA EUS. discussed risks vs benfitis and patient consented to its use pneumonia: Rocephin and azithromycin
[2020-04-26] MEDS ORDERED: Glucagon,Human Recombinant 1 MG Vial IM PRN (06:24)
[2020-04-26] MEDS ORDERED: 50% Dextrose in Water 50 ML Syringe IVPUSH PRN (06:24)
[2020-04-26 06:54] LABS: CARBON DIOXIDE,CO2 23.7 mmol/L (21.0-32.0); POTASSIUM,K 4.4 mmol/L (3.5-5.1)
[2020-04-26] MEDS: Insulin Aspart 100 Units/ML 3 ML Pen SUBCUT SCH ×3 (07:13→17:25)
[2020-04-26] MEDS: Pantoprazole 40 MG Tab.CR PO SCH (08:45)
[2020-04-26] MEDS: Diltiazem 180 MG Cap.CD PO SCH (08:45)
[2020-04-26] MEDS: Aspirin 81 MG Tab.Chew PO SCH (08:45)
--- NOTE | 2020-04-26 10:02 | PCM.PN ---
- General Info Date of Service: 04/26/20 - Review of Systems Systems Review Comment:: shortness of breath improving - Patient Data Vitals - Most Recent: Last Vital Signs Temp 36.3 C 04/26/20 05:01 Pulse 55 L 04/26/20 05:01 Resp 14 04/26/20 05:01 BP 133/71 04/26/20 05:01 Pulse Ox 94 L 04/26/20 05:01 Weight - Most Recent: 72.575 kg Lab Results Last 24 Hours: Laboratory Results - last 24 hr 04/25/20 04/25/20 04/25/20 Range/Units 19:13 19:13 19:50 WBC 8.16 (4.0-11.0) K/uL RBC 3.45 L (4.30-5.90) M/uL Hgb 10.0 L (12.0-16.0) g/dL Hct 31.3 L (36.0-46.0) % MCV 90.7 (80.0-98.0) fL MCH 29.0 (27.0-32.0) pg MCHC 31.9 (31.0-37.0) g/dL RDW Std Deviation 50.8 (28.0-62.0) fl RDW Coeff of Trisha 15 (11.0-15.0) % Plt Count 197 (150-400) K/uL MPV 9.50 (7.40-12.00) fL Neut % (Auto) 56.2 (48.0-80.0) % Lymph % (Auto) 30.0 (16.0-40.0) % [place] % (Auto) 12.4 (0.0-15.0) % Eos % (Auto) 0.7 (0.0-7.0) % Baso % (Auto) 0.7 (0.0-1.5) % Neut # (Auto) 4.6 (1.4-5.7) K/uL Lymph # (Auto) 2.5 H (0.6-2.4) K/uL [place] # (Auto) 1.0 H (0.0-0.8) K/uL Eos # (Auto) 0.1 (0.0-0.7) K/uL Baso # (Auto) 0.1 (0.0-0.1) K/uL Nucleated RBC % 0.0 /100WBC Nucleated RBCs # 0 K/uL Sodium 134 L (136-145) mmol/L Potassium 4.3 (3.5-5.1) mmol/L Chloride 100 (98-107) mmol/L Carbon Dioxide 27.1 (21.0-32.0) mmol/L BUN 13 (7.0-18.0) mg/dL Creatinine 1.5 H (0.6-1.0) mg/dL Est Cr Clr Drug Dosing 31.00 mL/min Estimated GFR (MDRD) 34.5 ml/min Glucose 86 (74-106) mg/dL POC Glucose (60-110) mg/dL Calcium 8.8 (8.5-10.1) mg/dL Total Bilirubin 0.3 (0.2-1.0) mg/dL AST 24 (15-37) IU/L ALT 23 (14-63) IU/L Alkaline Phosphatase 57 (46-116) U/L Troponin I < 0.050 (0.000-0.056) ng/mL Total Protein 6.7 (6.4-8.2) g/dL Albumin 3.3 L (3.4-5.0) g/dL Globulin 3.4 (2.6-4.0) g/dL Albumin/Globulin Ratio 1.0 (0.9-1.6) Lipase 156 (73-393) U/L Urine Color YELLOW Urine Appearance CLEAR Urine pH 6.0 (5.0-8.0) Ur Specific [place] >= 1.030 (1.001-1.035) Urine Protein NEGATIVE (NEGATIVE) mg/dL Urine Glucose (UA) NEGATIVE (NEGATIVE) mg/dL Urine Ketones NEGATIVE (NEGATIVE) mg/dL Urine Occult Blood NEGATIVE (NEGATIVE) Urine Nitrite NEGATIVE (NEGATIVE) Urine Bilirubin NEGATIVE (NEGATIVE) Urine Urobilinogen 0.2 (<2.0) EU/dL Ur Leukocyte Esterase NEGATIVE (NEGATIVE) 04/26/20 04/26/20 04/26/20 Range/Units 06:15 06:15 06:22 WBC 2.88 L (4.0-11.0) K/uL RBC 3.68 L (4.30-5.90) M/uL Hgb 10.5 L (12.0-16.0) g/dL Hct 33.1 L (36.0-46.0) % MCV 89.9 (80.0-98.0) fL MCH 28.5 (27.0-32.0) pg MCHC 31.7 (31.0-37.0) g/dL RDW Std Deviation 49.7 (28.0-62.0) fl RDW Coeff of Trisha 15 (11.0-15.0) % Plt Count 181 (150-400) K/uL MPV 9.20 (7.40-12.00) fL Neut % (Auto) 50.8 (48.0-80.0) % Lymph % (Auto) 45.1 H (16.0-40.0) % [place] % (Auto) 3.5 (0.0-15.0) % Eos % (Auto) 0.3 (0.0-7.0) % Baso % (Auto) 0.3 (0.0-1.5) % Neut # (Auto) 1.5 (1.4-5.7) K/uL Lymph # (Auto) 1.3 (0.6-2.4) K/uL [place] # (Auto) 0.1 (0.0-0.8) K/uL Eos # (Auto) 0.0 (0.0-0.7) K/uL Baso # (Auto) 0.0 (0.0-0.1) K/uL Nucleated RBC % 0.0 /100WBC Nucleated RBCs # 0 K/uL Sodium 136 (136-145) mmol/L Potassium 4.4 (3.5-5.1) mmol/L Chloride 103 (98-107) mmol/L Carbon Dioxide 23.7 (21.0-32.0) mmol/L BUN 14 (7.0-18.0) mg/dL Creatinine 1.2 H (0.6-1.0) mg/dL Est Cr Clr Drug Dosing 38.75 mL/min Estimated GFR (MDRD) 44.7 ml/min Glucose 120 H (74-106) mg/dL POC Glucose 216 H (60-110) mg/dL Calcium 8.4 L (8.5-10.1) mg/dL Total Bilirubin 0.3 (0.2-1.0) mg/dL AST 22 (15-37) IU/L ALT 26 (14-63) IU/L Alkaline Phosphatase 56 (46-116) U/L Troponin I (0.000-0.056) ng/mL Total Protein 6.6 (6.4-8.2) g/dL Albumin 3.1 L (3.4-5.0) g/dL Globulin 3.5 (2.6-4.0) g/dL Albumin/Globulin Ratio 0.9 (0.9-1.6) Lipase (73-393) U/L Urine Color Urine Appearance Urine pH (5.0-8.0) Ur Specific [place] (1.001-1.035) Urine Protein (NEGATIVE) mg/dL Urine Glucose (UA) (NEGATIVE) mg/dL Urine Ketones (NEGATIVE) mg/dL Urine Occult Blood (NEGATIVE) Urine Nitrite (NEGATIVE) Urine Bilirubin (NEGATIVE) Urine Urobilinogen (<2.0) EU/dL Ur Leukocyte Esterase (NEGATIVE) Med Orders - Current: Current Medications Hydrocodone Bitart/Acetaminophen ([place] 325-5 Mg) 1 tab PO Q6H PRN PRN Reason: Pain Albuterol (Proventil Hfa) 0 gm INH Q6H PRN PRN Reason: Shortness of Breath Alprazolam (Xanax) 0.5 mg PO TID PRN PRN Reason: Anxiety Aspirin (Aspirin) 81 mg PO DAILY [facility] Last Admin: 04/26/20 08:45 Dose: 81 mg Documented by: Azithromycin (Zithromax) 500 mg PO Q24H [facility] Dexamethasone (Dexamethasone) 6 mg PO Q24H [facility] Dextrose/Water (Dextrose 50% In Water) 50 ml IVPUSH ASDIRECTED PRN PRN Reason: Hypoglycemia Diltiazem HCl (Cardizem Cd) 360 mg PO DAILY [facility] Last Admin: 04/26/20 08:45 Dose: 360 mg Documented by: Docusate Sodium (Colace) 100 mg PO DAILY PRN PRN Reason: Constipation Enoxaparin Sodium (Lovenox) 40 mg SUBCUT Q24H [facility] Last Admin: 04/25/20 23:43 Dose: 40 mg Documented by: Glucagon (Glucagen) 1 mg IM ASDIRECTED PRN PRN Reason: Hypoglycemia Remdesivir 100 mg/ Sodium (Chloride) 100 mls @ 100 mls/hr IV Q24H [facility] Stop: 04/30/20 00:14 Ceftriaxone Sodium 1 gm/ (Sodium Chloride) 50 mls @ 100 mls/hr IV Q24H [facility] Insulin Aspart (Novolog) 0 unit SUBCUT TIDAC [facility]; Protocol Last Admin: 04/26/20 07:13 Dose: 2 unit Documented by: Pantoprazole Sodium (Protonix) 40 mg PO DAILY [facility] Last Admin: 04/26/20 08:45 Dose: 40 mg Documented by: Roflumilast 500 Mcg 1 each PO DAILY [facility] Last Admin: 04/26/20 08:48 Dose: Not Given Documented by: Pramipexole Dihydrochloride (Mirapex) 0.25 mg PO BEDTIME [facility] Rosuvastatin Calcium (Crestor) 40 mg PO BEDTIME [facility] Trazodone HCl (Trazodone) 50 mg PO BEDTIME PRN PRN Reason: Pain Last Admin: 04/25/20 23:41 Dose: 50 mg Documented by: Discontinued Medications Dexamethasone (Dexamethasone) 6 mg PO NOW STA Stop: 04/25/20 20:30 Last Admin: 04/25/20 20:40 Dose: Not Given Documented by: Dexamethasone (Dexamethasone) 6 mg IVPUSH ONETIME ONE Stop: 04/25/20 20:39 Last Admin: 04/25/20 20:40 Dose: 6 mg Documented by: Sodium Chloride (Normal Saline) 1,000 mls @ 999 mls/hr IV BOLUS ONE Stop: 04/25/20 19:49 Last Admin: 04/25/20 19:10 Dose: 999 mls/hr Documented by: Ceftriaxone Sodium/Dextrose 1 (gm/ Premix) 50 mls @ 100 mls/hr IV ONETIME ONE Stop: 04/25/20 20:45 Last Admin: 04/25/20 20:40 Dose: 100 mls/hr Documented by: Azithromycin 500 mg/ Sodium (Chloride) 250 mls @ 250 mls/hr IV ONETIME [facility] Remdesivir 200 mg/ Sodium (Chloride) 250 mls @ 250 mls/hr IV ONETIME ONE Stop: 04/25/20 20:31 Last Admin: 04/26/20 00:25 Dose: 250 mls/hr Documented by: Azithromycin 500 mg/ Sodium (Chloride) 250 mls @ 250 mls/hr IV NOW ONE Stop: 04/26/20 00:14 Last Admin: 04/25/20 23:36 Dose: 250 mls/hr Documented by: - Exam General: Alert, Oriented Lungs: Clear to Auscultation, Normal Respiratory Effort Cardiovascular: Regular Rate, Regular Rhythm GI/Abdominal Exam: Soft, Non-Tender, No Distention Extremities: Non-Tender, No Pedal Edema Skin: Warm, Dry, Intact Neurological: No New Focal Deficit Sepsis Event Note - Evaluation Sepsis Screening Result: No Definite Risk - Focused Exam Vital Signs: Vital Signs Temp Pulse Resp BP Pulse Ox 04/26/20 05:01 36.3 C 55 L 14 133/71 94 L 04/25/20 22:07 36.0 C L 71 19 142/71 H 90 L - Problem List & Annotations (1) A-fib SNOMED Code(s): 19200021 Code(s): I48.91 - UNSPECIFIED ATRIAL FIBRILLATION Status: Chronic Current Visit: Yes (2) COPD (chronic obstructive pulmonary disease) SNOMED Code(s): 76627885 Code(s): J44.9 - CHRONIC OBSTRUCTIVE PULMONARY DISEASE, UNSPECIFIED Status: Chronic Current Visit: Yes (3) CAD (coronary artery disease) SNOMED Code(s): 20611072 Code(s): I25.10 - ATHSCL HEART DISEASE OF [place] CORONARY ARTERY W/O ANG PCTRS Status: Chronic Current Visit: Yes (4) COVID-19 SNOMED Code(s): 661232008 Code(s): U07.1 - COVID-19 Status: Acute Current Visit: Yes (5) Pneumonia SNOMED Code(s): 666822854 Code(s): J18.9 - PNEUMONIA, UNSPECIFIED ORGANISM Status: Acute Current Visit: Yes Qualifiers: Pneumonia type: due to unspecified organism Laterality: left Lung location: upper lobe of lung Qualified Code(s): J18.9 - Pneumonia, unspecified organism - Problem List Review Problem List Initiated/Reviewed/Updated: No - My Orders Last 24 Hours: My Active Orders 04/25/20 23:11 ALPRAZolam [Xanax] 0.5 mg PO TID PRN Acetaminophen/HYDROcodone [[place] 325-5 MG] 1 tab PO Q6H PRN Albuterol [Proventil HFA] 0 gm INH Q6H PRN Docusate Sodium [Colace] 100 mg PO DAILY PRN traZODone 50 mg PO BEDTIME PRN 04/25/20 23:13 RT Post Treatment Assessment [RC] Click to Edit RT Pre-Treatment Assessment [RC] Click to Edit 04/25/20 23:15 Enoxaparin [Lovenox] 40 mg SUBCUT Q24H 04/25/20 23:18 Oxygen Therapy [RC] PRN Up ad Liza [RC] ASDIRECTED VTE/DVT Education [RC] PER UNIT ROUTINE Vital Signs [RC] Q4H Sequential Compression Device [OM.PC] Per Unit Routine Resuscitation Status Routine 04/25/20 23:19 Antiembolic Devices [RC] PER UNIT ROUTINE 04/26/20 06:24 Blood Glucose Check, Bedside [RC] TIDAC Dextrose 50% in Water 50 ml IVPUSH ASDIRECTED PRN Glucagon,Human Recombinant [GlucaGen] 1 mg IM ASDIRECTED PRN 04/26/20 07:30 Insulin Aspart [NovoLOG] See Protocol SUBCUT TIDAC 04/26/20 09:00 Aspirin 81 mg PO DAILY Diltiazem [Cardizem CD] 360 mg PO DAILY Pantoprazole [ProTONIX] 40 mg PO DAILY Patient's Own Medication [Ptom] 1 each PO DAILY 04/26/20 21:00 Pramipexole [Mirapex] 0.25 mg PO BEDTIME Rosuvastatin [Crestor] 40 mg PO BEDTIME 04/26/20 23:15 Azithromycin [Zithromax] 500 mg PO Q24H Remdesivir (Eua) [Remdesivir (EUA)] 100 mg Sodium Chloride 0.9% [Normal Saline] 100 ml IV Q24H cefTRIAXone [Rocephin] 1 gm Sodium Chloride 0.9% [Normal Saline] 50 ml IV Q24H dexAMETHasone 6 mg PO Q24H 04/27/20 05:11 CBC WITH AUTO DIFF [HEME] AM COMPREHENSIVE METABOLIC PN,CMP [CHEM] AM 04/28/20 05:11 CBC WITH AUTO DIFF [HEME] AM COMPREHENSIVE METABOLIC PN,CMP [CHEM] AM 04/29/20 05:11 CBC WITH AUTO DIFF [HEME] AM COMPREHENSIVE METABOLIC PN,CMP [CHEM] AM - Plan Plan:: 69 yo female admitted for COVID pneumonia COVID: continue dexamethasone, remdesivir, and lovenox pneumonia: Rocephin and azithromycin a.fib: diltiazem, ASA, anticoagulation was stopped by primary care due to anemia.
[2020-04-26] MEDS: traZODone 50 MG Tab PO PRN (20:03)
[2020-04-26] MEDS ORDERED: Pramipexole 0.25 MG Tab PO SCH (21:00)
[2020-04-26] MEDS ORDERED: Rosuvastatin 10 MG Tab PO SCH (21:00)
[2020-04-26] MEDS ORDERED: cefTRIAXone 1 GM in Premix Bag 1 BAG IV SCH (23:00)
[2020-04-26] MEDS: Enoxaparin 40 MG/0.4 ML Syringe SUBCUT SCH (23:04)
[2020-04-26] MEDS ORDERED: cefTRIAXone 1 GM in Sodium Chloride 0.9% 50 ML IV SCH (23:15)
[2020-04-26] MEDS ORDERED: Azithromycin 250 MG Tab PO SCH (23:15)
[2020-04-26] MEDS ORDERED: Dexamethasone 4 MG Tab PO SCH (23:15)
[2020-04-26] MEDS ORDERED: REMDESIVIR (EUA) 100 MG in Sodium Chloride 0.9% 100 ML IV SCH (23:15)
[2020-04-27 06:58] LABS: POTASSIUM,K 4.7 mmol/L (3.5-5.1)
[2020-04-27] MEDS: Insulin Aspart 100 Units/ML 3 ML Pen SUBCUT SCH ×2 (06:59→13:24)
[2020-04-27] MEDS: Aspirin 81 MG Tab.Chew PO SCH (09:16)
[2020-04-27] MEDS: Pantoprazole 40 MG Tab.CR PO SCH (09:16)
[2020-04-27] MEDS: Diltiazem 180 MG Cap.CD PO SCH (09:17)
--- NOTE | 2020-04-27 11:40 | PCM.DCSUM1 ---
<Lacie Upton - Last Filed: 04/27/20 15:00> Discharge Summary - Hospital Course Brief History: 69 yo female with pmh of CAD, [place], oxygen dependent COPD, and a.fib who presents with a week history of fevers, chills, productive cough, diarrhea and headache. Patient was seen by her primary care nurse yesterday and prescribed levaquin for pneumonia. She reported to the ED today due to worsening malaise. She was positive for Covid. Chest x-ray reported left hilar consolidation. - Discharge Data Discharge Date: 04/27/20 Discharge Disposition: Home, Self-Care 01 Condition: Good - Referral to Home Health Primary Care Physician: PCP Not In Area - Discharge Diagnosis/Problem(s) (1) COVID-19 SNOMED Code(s): 821778104 ICD Code: U07.1 - COVID-19 Status: Acute (2) Pneumonia SNOMED Code(s): 394905502 ICD Code: J18.9 - PNEUMONIA, UNSPECIFIED ORGANISM Status: Acute Qualifiers: Pneumonia type: due to unspecified organism Laterality: left Lung location: upper lobe of lung Qualified Code(s): J18.9 - Pneumonia, unspecified organism - Patient Summary/Data Hospital Course: Pt was admitted for fever, chills, productive cough, diarrhea, and worsening malaise secondary to COVID 19. Was started on 2L's of oxygen, weaned to 1.5 L's with 100% O2 saturation. Was much improved this morning with no acute events overnight. This morning states she felt much better, " no longer felt sick. Patient was medically stable and discharged home since she uses oxygen 3L at home daily for her underlying COPD. - Patient Instructions Diet: Heart Healthy Diet Activity: As Tolerated Notify Provider of: Fever, Increased Pain, Swelling and Redness, Nausea and/or Vomiting Other/Special Instructions: please retrun to hospital in the event your symptoms worsen, or you become more short of breath, have chest pain. - Discharge Plan *PRESCRIPTION DRUG MONITORING PROGRAM REVIEWED*: Not Applicable *COPY OF PRESCRIPTION DRUG MONITORING REPORT IN PATIENT TONY: Not Applicable Prescriptions/Med Rec: dexAMETHasone [Dexamethasone] 6 mg PO DAILY 9 Days #27 tab Home Medications: Home Meds Aspirin 81 mg PO DAILY 11/05/19 [History] Pantoprazole [ProTONIX] 40 mg PO DAILY 11/05/19 [History] Pramipexole [Mirapex] 0.25 mg PO BEDTIME 11/05/19 [History] Roflumilast [Daliresp] 500 mcg PO DAILY 11/05/19 [History] Rosuvastatin Calcium [Ezallor Sprinkle] 40 mg PO BEDTIME 11/05/19 [History] lisinopriL [Lisinopril] 5 mg PO DAILY 11/05/19 [History] traZODone HCl [Trazodone HCl] 25 mg PO BEDTIME PRN 11/05/19 [History] Albuterol Sulfate [Albuterol Sulfate Hfa] 1 puff INH Q6H PRN 03/15/20 [History] Albuterol/Ipratropium [DuoNeb 3.0-0.5 MG/3 ML] 3 ml INH Q6H PRN 03/15/20 [History] Docusate Sodium 100 mg PO DAILY PRN 03/15/20 [History] Fluticasone/Umeclidin/Vilanter [Trelegy Ellipta 100-62.5-25 MCG] 1 puff INH DAILY 03/15/20 [History] Hydrocodone/Acetaminophen [Hydrocodone-Acetamin 5-325 mg] 1 tab PO Q6H PRN 03/15/20 [History] Nitroglycerin 0.4 mg SL Q5M PRN 03/15/20 [History] Sucralfate 1 gm PO QIDACANDBED 03/15/20 [History] dilTIAZem HCL [Cardizem Cd] 360 mg PO DAILY 03/15/20 [History] ALPRAZolam [Alprazolam] 0.5 mg PO TID PRN 04/26/20 [History] DULoxetine [Cymbalta] 30 mg PO BID 04/26/20 [History] Fluticasone/Umeclidin/Vilanter [Trelegy Ellipta 100-62.5-25 MCG] 1 inh IH DAILY 04/26/20 [History] Pantoprazole [ProTONIX] 40 mg PO DAILY 04/26/20 [History] Pramipexole [Mirapex] 0.25 mg PO BEDTIME 04/26/20 [History] dilTIAZem HCL [Diltiazem 24Hr ER ([place])] 360 mg PO DAILY 04/26/20 [History] dexAMETHasone [Dexamethasone] 6 mg PO DAILY 9 Days #27 tab 04/27/20 [Rx] Oxygen Therapy Mode: Nasal Cannula (1) Oxygen Flow Rate (L/min): 1.5 Patient Handouts: COVID-19 Frequently Asked Questions, Dexamethasone tablets, Community-Acquired Pneumonia, Adult, Prevent the Spread of COVID-19 if You Are Sick - [facility] Referrals: PCP,Not In Area [Primary Care Provider] - - Discharge Summary/Plan Comment DC Time >30 min.: No - Patient Data Vitals - Most Recent: Last Vital Signs Temp 96.3 F L 04/27/20 08:00 Pulse 53 L 04/27/20 08:00 Resp 16 04/27/20 08:00 BP 167/65 H 04/27/20 08:00 Pulse Ox 98 04/27/20 08:00 Weight - Most Recent: 72.575 kg I&O - Last 24 hours: Intake & Output 04/26/20 04/27/20 04/27/20 22:59 06:59 14:59 Intake Total 830 Output Total 1700 Balance -870 Lab Results - Last 24 hrs: Laboratory Results - last 24 hr 04/26/20 04/26/20 04/27/20 Range/Units 13:00 17:00 06:00 WBC 6.20 (4.0-11.0) K/uL RBC 3.84 L (4.30-5.90) M/uL Hgb 10.9 L (12.0-16.0) g/dL Hct 34.6 L (36.0-46.0) % MCV 90.1 (80.0-98.0) fL MCH 28.4 (27.0-32.0) pg MCHC 31.5 (31.0-37.0) g/dL RDW Std Deviation 50.8 (28.0-62.0) fl RDW Coeff of Trisha 15 (11.0-15.0) % Plt Count 218 (150-400) K/uL MPV 9.60 (7.40-12.00) fL Neut % (Auto) 63.2 (48.0-80.0) % Lymph % (Auto) 30.3 (16.0-40.0) % [place] % (Auto) 6.3 (0.0-15.0) % Eos % (Auto) 0.0 (0.0-7.0) % Baso % (Auto) 0.2 (0.0-1.5) % Neut # (Auto) 3.9 (1.4-5.7) K/uL Lymph # (Auto) 1.9 (0.6-2.4) K/uL [place] # (Auto) 0.4 (0.0-0.8) K/uL Eos # (Auto) 0.0 (0.0-0.7) K/uL Baso # (Auto) 0.0 (0.0-0.1) K/uL Nucleated RBC % 0.0 /100WBC Nucleated RBCs # 0 K/uL Sodium (136-145) mmol/L Potassium (3.5-5.1) mmol/L Chloride (98-107) mmol/L Carbon Dioxide (21.0-32.0) mmol/L BUN (7.0-18.0) mg/dL Creatinine (0.6-1.0) mg/dL Est Cr Clr Drug Dosing mL/min Estimated GFR (MDRD) ml/min Glucose (74-106) mg/dL POC Glucose 113 H 134 H (60-110) mg/dL Calcium (8.5-10.1) mg/dL Total Bilirubin (0.2-1.0) mg/dL AST (15-37) IU/L ALT (14-63) IU/L Alkaline Phosphatase (46-116) U/L Total Protein (6.4-8.2) g/dL Albumin (3.4-5.0) g/dL Globulin (2.6-4.0) g/dL Albumin/Globulin Ratio (0.9-1.6) 04/27/20 04/27/20 Range/Units 06:00 06:52 WBC (4.0-11.0) K/uL RBC (4.30-5.90) M/uL Hgb (12.0-16.0) g/dL Hct (36.0-46.0) % MCV (80.0-98.0) fL MCH (27.0-32.0) pg MCHC (31.0-37.0) g/dL RDW Std Deviation (28.0-62.0) fl RDW Coeff of Trisha (11.0-15.0) % Plt Count (150-400) K/uL MPV (7.40-12.00) fL Neut % (Auto) (48.0-80.0) % Lymph % (Auto) (16.0-40.0) % [place] % (Auto) (0.0-15.0) % Eos % (Auto) (0.0-7.0) % Baso % (Auto) (0.0-1.5) % Neut # (Auto) (1.4-5.7) K/uL Lymph # (Auto) (0.6-2.4) K/uL [place] # (Auto) (0.0-0.8) K/uL Eos # (Auto) (0.0-0.7) K/uL Baso # (Auto) (0.0-0.1) K/uL Nucleated RBC % /100WBC Nucleated RBCs # K/uL Sodium 138 (136-145) mmol/L Potassium 4.7 (3.5-5.1) mmol/L Chloride 103 (98-107) mmol/L Carbon Dioxide 26.0 (21.0-32.0) mmol/L BUN 21 H (7.0-18.0) mg/dL Creatinine 1.2 H (0.6-1.0) mg/dL Est Cr Clr Drug Dosing 38.75 mL/min Estimated GFR (MDRD) 44.7 ml/min Glucose 122 H (74-106) mg/dL POC Glucose 133 H (60-110) mg/dL Calcium 9.5 (8.5-10.1) mg/dL Total Bilirubin 0.3 (0.2-1.0) mg/dL AST 20 (15-37) IU/L ALT 20 (14-63) IU/L Alkaline Phosphatase 59 (46-116) U/L Total Protein 7.1 (6.4-8.2) g/dL Albumin 3.3 L (3.4-5.0) g/dL Globulin 3.8 (2.6-4.0) g/dL Albumin/Globulin Ratio 0.9 (0.9-1.6) Med Orders - Current: Current Medications Hydrocodone Bitart/Acetaminophen (Mather 325-5 Mg) 1 tab PO Q6H PRN PRN Reason: Pain Albuterol (Proventil Hfa) 0 gm INH Q6H PRN PRN Reason: Shortness of Breath Alprazolam (Xanax) 0.5 mg PO TID PRN PRN Reason: Anxiety Last Admin: 04/26/20 20:16 Dose: 0.5 mg Documented by: Aspirin (Aspirin) 81 mg PO DAILY [facility] Last Admin: 04/27/20 09:16 Dose: 81 mg Documented by: Azithromycin (Zithromax) 500 mg PO Q24H [facility] Last Admin: 04/26/20 23:03 Dose: 500 mg Documented by: Dexamethasone (Dexamethasone) 6 mg PO Q24H [facility] Last Admin: 04/26/20 23:03 Dose: 6 mg Documented by: Dextrose/Water (Dextrose 50% In Water) 50 ml IVPUSH ASDIRECTED PRN PRN Reason: Hypoglycemia Diltiazem HCl (Cardizem Cd) 360 mg PO DAILY [facility] Last Admin: 04/27/20 09:17 Dose: 360 mg Documented by: Docusate Sodium (Colace) 100 mg PO DAILY PRN PRN Reason: Constipation Enoxaparin Sodium (Lovenox) 40 mg SUBCUT Q24H [facility] Last Admin: 04/26/20 23:04 Dose: 40 mg Documented by: Glucagon (Glucagen) 1 mg IM ASDIRECTED PRN PRN Reason: Hypoglycemia Remdesivir 100 mg/ Sodium (Chloride) 100 mls @ 100 mls/hr IV Q24H [facility] Stop: 04/30/20 00:14 Last Admin: 04/26/20 23:06 Dose: 100 mls/hr Documented by: Ceftriaxone Sodium/Dextrose 1 (gm/ Premix) 50 mls @ 100 mls/hr IV Q24H [facility] Last Admin: 04/27/20 00:21 Dose: 100 mls/hr Documented by: Insulin Aspart (Novolog) 0 unit SUBCUT TIDAC [facility]; Protocol Last Admin: 04/27/20 06:59 Dose: Not Given Documented by: Pantoprazole Sodium (Protonix) 40 mg PO DAILY [facility] Last Admin: 04/27/20 09:16 Dose: 40 mg Documented by: Roflumilast 500 Mcg 1 each PO DAILY [facility] Last Admin: 04/27/20 09:17 Dose: Not Given Documented by: Pramipexole Dihydrochloride (Mirapex) 0.25 mg PO BEDTIME [facility] Last Admin: 04/26/20 20:02 Dose: 0.25 mg Documented by: Rosuvastatin Calcium (Crestor) 40 mg PO BEDTIME [facility] Last Admin: 04/26/20 20:01 Dose: 40 mg Documented by: Trazodone HCl (Trazodone) 50 mg PO BEDTIME PRN PRN Reason: Pain Last Admin: 04/26/20 20:03 Dose: 50 mg Documented by: Discontinued Medications Dexamethasone (Dexamethasone) 6 mg PO NOW STA Stop: 04/25/20 20:30 Last Admin: 04/25/20 20:40 Dose: Not Given Documented by: Dexamethasone (Dexamethasone) 6 mg IVPUSH ONETIME ONE Stop: 04/25/20 20:39 Last Admin: 04/25/20 20:40 Dose: 6 mg Documented by: Sodium Chloride (Normal Saline) 1,000 mls @ 999 mls/hr IV BOLUS ONE Stop: 04/25/20 19:49 Last Admin: 04/25/20 19:10 Dose: 999 mls/hr Documented by: Ceftriaxone Sodium/Dextrose 1 (gm/ Premix) 50 mls @ 100 mls/hr IV ONETIME ONE Stop: 04/25/20 20:45 Last Admin: 04/25/20 20:40 Dose: 100 mls/hr Documented by: Azithromycin 500 mg/ Sodium (Chloride) 250 mls @ 250 mls/hr IV ONETIME [facility] Remdesivir 200 mg/ Sodium (Chloride) 250 mls @ 250 mls/hr IV ONETIME ONE Stop: 04/25/20 20:31 Last Admin: 04/26/20 00:25 Dose: 250 mls/hr Documented by: Azithromycin 500 mg/ Sodium (Chloride) 250 mls @ 250 mls/hr IV NOW ONE Stop: 04/26/20 00:14 Last Admin: 04/25/20 23:36 Dose: 250 mls/hr Documented by: Ceftriaxone Sodium/Dextrose (Rocephin In Dextrose,Iso-Osm 1 Gm/50 Ml) Confirm Administered Dose 50 mls @ as directed .ROUTE .STK-MED ONE Stop: 04/26/20 23:49 Last Admin: 04/27/20 00:01 Dose: Not Given Documented by: <Joiner,Rajinder J - Last Filed: 04/30/20 22:25> Discharge Summary - Referral to Home Health Primary Care Physician: PCP Not In Area - Discharge Diagnosis/Problem(s) (1) A-fib SNOMED Code(s): 72359110 ICD Code: I48.91 - UNSPECIFIED ATRIAL FIBRILLATION Status: Chronic (2) COPD (chronic obstructive pulmonary disease) SNOMED Code(s): 77564609 ICD Code: J44.9 - CHRONIC OBSTRUCTIVE PULMONARY DISEASE, UNSPECIFIED Status: Chronic (3) CAD (coronary artery disease) SNOMED Code(s): 57481872 ICD Code: I25.10 - ATHSCL HEART DISEASE OF [place] CORONARY ARTERY W/O ANG PCTRS Status: Chronic (4) COVID-19 SNOMED Code(s): 624686040 ICD Code: U07.1 - COVID-19 Status: Acute (5) Pneumonia SNOMED Code(s): 428721697 ICD Code: J18.9 - PNEUMONIA, UNSPECIFIED ORGANISM Status: Acute Qualifiers: Pneumonia type: due to unspecified organism Laterality: left Lung location: upper lobe of lung Qualified Code(s): J18.9 - Pneumonia, unspecified organism - Patient Data Vitals - Most Recent: Last Vital Signs Temp 35.5 C L 04/27/20 12:00 Pulse 53 L 04/27/20 12:00 Resp 16 04/27/20 12:00 BP 150/64 H 04/27/20 12:00 Pulse Ox 98 04/27/20 12:00 Med Orders - Current: Current Medications Discontinued Medications Hydrocodone Bitart/Acetaminophen (Mather 325-5 Mg) 1 tab PO Q6H PRN PRN Reason: Pain Albuterol (Proventil Hfa) 0 gm INH Q6H PRN PRN Reason: Shortness of Breath Alprazolam (Xanax) 0.5 mg PO TID PRN PRN Reason: Anxiety Last Admin: 04/26/20 20:16 Dose: 0.5 mg Documented by: Aspirin (Aspirin) 81 mg PO DAILY [facility] Last Admin: 04/27/20 09:16 Dose: 81 mg Documented by: Azithromycin (Zithromax) 500 mg PO Q24H [facility] Last Admin: 04/26/20 23:03 Dose: 500 mg Documented by: Dexamethasone (Dexamethasone) 6 mg PO NOW STA Stop: 04/25/20 20:30 Last Admin: 04/25/20 20:40 Dose: Not Given Documented by: Dexamethasone (Dexamethasone) 6 mg IVPUSH ONETIME ONE Stop: 04/25/20 20:39 Last Admin: 04/25/20 20:40 Dose: 6 mg Documented by: Dexamethasone (Dexamethasone) 6 mg PO Q24H [facility] Last Admin: 04/26/20 23:03 Dose: 6 mg Documented by: Dextrose/Water (Dextrose 50% In Water) 50 ml IVPUSH ASDIRECTED PRN PRN Reason: Hypoglycemia Diltiazem HCl (Cardizem Cd) 360 mg PO DAILY [facility] Last Admin: 04/27/20 09:17 Dose: 360 mg Documented by: Docusate Sodium (Colace) 100 mg PO DAILY PRN PRN Reason: Constipation Enoxaparin Sodium (Lovenox) 40 mg SUBCUT Q24H [facility] Last Admin: 04/26/20 23:04 Dose: 40 mg Documented by: Glucagon (Glucagen) 1 mg IM ASDIRECTED PRN PRN Reason: Hypoglycemia Sodium Chloride (Normal Saline) 1,000 mls @ 999 mls/hr IV BOLUS ONE Stop: 04/25/20 19:49 Last Admin: 04/25/20 19:10 Dose: 999 mls/hr Documented by: Ceftriaxone Sodium/Dextrose 1 (gm/ Premix) 50 mls @ 100 mls/hr IV ONETIME ONE Stop: 04/25/20 20:45 Last Admin: 04/25/20 20:40 Dose: 100 mls/hr Documented by: Azithromycin 500 mg/ Sodium (Chloride) 250 mls @ 250 mls/hr IV ONETIME [facility] Remdesivir 200 mg/ Sodium (Chloride) 250 mls @ 250 mls/hr IV ONETIME ONE Stop: 04/25/20 20:31 Last Admin: 04/26/20 00:25 Dose: 250 mls/hr Documented by: Azithromycin 500 mg/ Sodium (Chloride) 250 mls @ 250 mls/hr IV NOW ONE Stop: 04/26/20 00:14 Last Admin: 04/25/20 23:36 Dose: 250 mls/hr Documented by: Remdesivir 100 mg/ Sodium (Chloride) 100 mls @ 100 mls/hr IV Q24H [facility] Stop: 04/30/20 00:14 Last Admin: 04/26/20 23:06 Dose: 100 mls/hr Documented by: Ceftriaxone Sodium/Dextrose (Rocephin In Dextrose,Iso-Osm 1 Gm/50 Ml) Confirm Administered Dose 50 mls @ as directed .ROUTE .STK-MED ONE Stop: 04/26/20 23:49 Last Admin: 04/27/20 00:01 Dose: Not Given Documented by: Ceftriaxone Sodium/Dextrose 1 (gm/ Premix) 50 mls @ 100 mls/hr IV Q24H [facility] Last Admin: 04/27/20 00:21 Dose: 100 mls/hr Documented by: Insulin Aspart (Novolog) 0 unit SUBCUT TIDAC [facility]; Protocol Last Admin: 04/27/20 13:24 Dose: Not Given Documented by: Pantoprazole Sodium (Protonix) 40 mg PO DAILY [facility] Last Admin: 04/27/20 09:16 Dose: 40 mg Documented by: Roflumilast 500 Mcg 1 each PO DAILY [facility] Last Admin: 04/27/20 09:17 Dose: Not Given Documented by: Pramipexole Dihydrochloride (Mirapex) 0.25 mg PO BEDTIME [facility] Last Admin: 04/26/20 20:02 Dose: 0.25 mg Documented by: Rosuvastatin Calcium (Crestor) 40 mg PO BEDTIME [facility] Last Admin: 04/26/20 20:01 Dose: 40 mg Documented by: Trazodone HCl (Trazodone) 50 mg PO BEDTIME PRN PRN Reason: Pain Last Admin: 04/26/20 20:03 Dose: 50 mg Documented by: - Free Text/Narrative Note: I have seen and evaluated the patient. I have discussed findings and treatment plan with resident. I agree with the assessment and plan in the following note.
== END 2020-04-27 14:10 | disposition home or self-care (01) ==
LOC: MW.ED 18:05 → MW.MS 20:32
PROVIDERS: ADMIT Internal Medicine; ATTEND Internal Medicine
DX: U07.1 COVID-19 (principal); J18.9 Pneumonia, unspecified organism; I25.10 Atherosclerotic heart disease of native coronary artery without angina pectoris; I25.2 Old myocardial infarction; J44.9 Chronic obstructive pulmonary disease, unspecified; I10 Essential (primary) hypertension; I48.91 Unspecified atrial fibrillation; F41.9 Anxiety disorder, unspecified; N18.30 Chronic kidney disease, stage 3 unspecified; I12.9 Hypertensive chronic kidney disease with stage 1 through stage 4 chronic kidney disease, or unspecified chronic kidney disease; Z79.01 Long term (current) use of anticoagulants; Z88.5 Allergy status to narcotic agent; Z79.899 Other long term (current) drug therapy; Z79.82 Long term (current) use of aspirin; Z98.890 Other specified postprocedural states
CPT/HCPCS: 36415; 71045; 80053; 81003; 82962; 83690; 84484; 85025; 93005; A9270; J0456; J0696; J1100; J1650; J1815; J7030; J7050; J8540; 93010; 99284